=== PATIENT | female | born 1985 | race Caucasian/White ===

== ENCOUNTER 2023-02-07 08:38 | Outpatient (REF) | payer MEDICAID, SELFPAY | END 2023-02-07 08:39 | disposition home or self-care (01) | LOC: HO.HHCL 08:38 | PROVIDERS: Visit Provider Nurse Practitioner Family | DX: Z00.00 Encounter for general adult medical examination without abnormal findings (principal); L65.9 Nonscarring hair loss, unspecified | CPT/HCPCS: 36415; 80053; 80061; 84443; 85025 ==

== ENCOUNTER 2024-03-11 10:08 | Outpatient (REF) | payer MEDICAID, SELFPAY ==
[2024-03-11 11:10] LABS: MANUAL DIFF FLAG NO
[2024-03-11 11:18] LABS: Basophils Percent Auto 0.4 % (0-2); Eosinophils Absolute Auto 0.4 X10*3/uL (0.0-0.4); Eosinophils Percent Auto 5.6 % (0-4); Hematocrit 35.9 % (37.0-47.0); Hemoglobin 11.9 g/dl (12.0-16.0); Imm Gran Abs Auto 0.03 X10*3/uL (0.00-0.03); Imm Gran Pct Auto 0.4 % (0.0-0.4); Lymphocytes Absolute Auto 1.7 X10*3/uL (1.2-4.9); Lymphocytes Percent Auto 24.2 % (20-40); Mean Corpuscular HGB Conc 33.1 g/dl (31.0-35.0); Mean Corpuscular Hemoglobin 27.9 pg (27.0-33.0); Mean Corpuscular Volume 84.1 fL (80.0-98.0); Mean Platelet Volume 9.2 fL (9.4-12.3); Monocytes Absolute Auto 0.4 X10*3/uL (0.1-1.2); Monocytes Percent Auto 5.5 % (2-11); Neutrophils Absolute Auto 4.4 x10*3/uL (2.0-8.3); Neutrophils Percent Auto 63.9 % (45-73); Platelet Count 309 X10*3/uL (160-400); Red Blood Count 4.27 X10*6/uL (4.20-5.50); Red Cell Distribution Width 12.3 % (11.0-16.0); White Blood Count 6.9 X10*3/uL (4.8-10.8)
[2024-03-11 11:27] LABS: Estimated Average Glucose 108 mg/dL; Hemoglobin A1C 115.1463 umol/L; Hemoglobin A1c % 5.4 % (<6.0); Total Hemoglobin (HGBA1C) 3201.9485 umol/L
[2024-03-11 11:50] LABS: Alanine Aminotransferase 18 U/L (0-31); Albumin Level 4.2 g/dL (3.5-5.0); Alkaline Phosphatase 72 U/L (39-117); Anion Gap 12 (12-20); Aspartate Amino Transferase 18 U/L (5-31); Bilirubin Total 0.4 mg/dL (0.0-1.0); Blood Urea Nitrogen 10 mg/dL (9-16); Calcium 9.2 mg/dL (8.4-10.2); Carbon Dioxide 23 mmol/L (22-29); Chloride 107 mmol/L (96-108); Cholesterol 180 mg/dL (<200); Estimated Glomerular Filt Rate > 60; Glucose Random 97 mg/dL (60-115); HDL Cholesterol 61 mg/dL (>40); LDL Cholesterol Calculated 106 mg/dL (<100); Potassium 4.2 mmol/L (3.3-5.1); Sodium 138 mmol/L (135-145); Total Protein 7.3 g/dL (6.5-8.0); Triglycerides 68 mg/dL (<150)
[2024-03-11 12:06] LABS: Thyroid Stimulating Hormone 1.47 uIU/mL (0.32-4.0)
[2024-03-11 12:43] LABS: HIV AB/AG Nonreactive (Nonreactive); HIV Num 1 0.05 S/CO (0.00-0.99); ~HepC Num1 0.25 S/CO (0.00-0.79); ~Hepatitis C Antibody Nonreactive (Nonreactive)
== END 2024-03-11 10:09 | disposition home or self-care (01) ==
LOC: HO.HHCL 10:08
PROVIDERS: Visit Provider Nurse Practitioner Family
DX: Z00.00 Encounter for general adult medical examination without abnormal findings (principal); D64.9 Anemia, unspecified; L65.9 Nonscarring hair loss, unspecified; E66.811 Obesity, class 1
CPT/HCPCS: 36415; 80053; 80061; 83036; 84443; 85025; 86803; 87389

== ENCOUNTER 2024-04-02 08:30 | Outpatient (REF) | payer MEDICAID, SELFPAY ==
[2024-04-02 11:33] LABS: Hematocrit 35.3 % (37.0-47.0); Hemoglobin 11.5 g/dl (12.0-16.0); Mean Corpuscular HGB Conc 32.6 g/dl (31.0-35.0); Mean Corpuscular Volume 86.1 fL (80.0-98.0); Platelet Count 283 X10*3/uL (160-400); Red Cell Distribution Width 12.9 % (11.0-16.0); White Blood Count 6.4 X10*3/uL (4.8-10.8)
[2024-04-02 11:34] LABS: Alanine Aminotransferase 14 U/L (0-31); Alkaline Phosphatase 72 U/L (39-117); Anion Gap 11 (12-20); Aspartate Amino Transferase 18 U/L (5-31); Bilirubin Total 0.4 mg/dL (0.0-1.0); Blood Urea Nitrogen 12 mg/dL (9-16); Carbon Dioxide 23 mmol/L (22-29); Chloride 107 mmol/L (96-108); Estimated Glomerular Filt Rate > 60; Glucose Random 106 mg/dL (60-115); Potassium 3.9 mmol/L (3.3-5.1); Sodium 137 mmol/L (135-145); Total Protein 6.8 g/dL (6.5-8.0)
[2024-04-02 11:48] LABS: INTERNATIONAL NORM RATIO 0.9 (0.9-1.1); Prothrombin Time 10.4 SEC (10.9-12.4)
[2024-04-02 11:50] LABS: Partial Thromboplastin Time 30.8 SEC (26.0-36.8)
== END 2024-04-02 08:31 | disposition home or self-care (01) ==
LOC: HO.HHCL 08:30
PROVIDERS: Visit Provider Surgery Surgery of the Hand
DX: Z01.818 Encounter for other preprocedural examination (principal)
CPT/HCPCS: 36415; 80053; 85027; 85610; 85730

== ENCOUNTER 2024-05-02 11:06 | Outpatient (REF) | payer MEDICAID, SELFPAY ==
--- NOTE | ~2024-05-02 | XR_ITS ---
EXAMINATION: XR CHEST CLINICAL INFORMATION: Preop. COMPARISON: None TECHNIQUE: 2 views of the chest were obtained. FINDINGS: No consolidation pleural effusion or pneumothorax. Cardiomediastinal silhouette is normal. Osseous structures are intact. XR/XR chest 2V IMPRESSION: No acute airspace disease. Negative. Electronically signed by: Jimenez Carpenter MD 05/08/2024 09:18 AM [facility]
[2024-05-02 13:04] LABS: MANUAL DIFF FLAG NO
[2024-05-02 13:11] LABS: Basophils Percent Auto 0.5 % (0-2); Eosinophils Absolute Auto 0.4 X10*3/uL (0.0-0.4); Eosinophils Percent Auto 5.3 % (0-4); Hematocrit 36.1 % (37.0-47.0); Imm Gran Abs Auto 0.04 X10*3/uL (0.00-0.03); Imm Gran Pct Auto 0.5 % (0.0-0.4); Lymphocytes Absolute Auto 2.4 X10*3/uL (1.2-4.9); Lymphocytes Percent Auto 29.7 % (20-40); Mean Corpuscular HGB Conc 33.2 g/dl (31.0-35.0); Mean Corpuscular Volume 84.3 fL (80.0-98.0); Mean Platelet Volume 9.5 fL (9.4-12.3); Monocytes Absolute Auto 0.5 X10*3/uL (0.1-1.2); Monocytes Percent Auto 5.8 % (2-11); Neutrophils Absolute Auto 4.6 x10*3/uL (2.0-8.3); Neutrophils Percent Auto 58.2 % (45-73); Platelet Count 330 X10*3/uL (160-400); Red Blood Count 4.28 X10*6/uL (4.20-5.50); Red Cell Distribution Width 12.8 % (11.0-16.0); White Blood Count 7.9 X10*3/uL (4.8-10.8)
[2024-05-02 13:16] LABS: INTERNATIONAL NORM RATIO 0.9 (0.9-1.1); Prothrombin Time 10.2 SEC (10.9-12.4)
[2024-05-02 13:18] LABS: Partial Thromboplastin Time 28.4 SEC (26.0-36.8)
[2024-05-02 13:39] LABS: Alanine Aminotransferase 17 U/L (0-31); Alkaline Phosphatase 76 U/L (39-117); Anion Gap 11 (12-20); Aspartate Amino Transferase 16 U/L (5-31); Bilirubin Total 0.2 mg/dL (0.0-1.0); Blood Urea Nitrogen 13 mg/dL (9-16); Carbon Dioxide 24 mmol/L (22-29); Chloride 108 mmol/L (96-108); Estimated Glomerular Filt Rate > 60; Glucose Random 102 mg/dL (60-115); Sodium 139 mmol/L (135-145); Total Protein 6.8 g/dL (6.5-8.0)
[2024-05-02 13:44] LABS: Thyroid Stimulating Hormone 0.66 uIU/mL (0.32-4.0)
== END 2024-05-02 11:07 | disposition home or self-care (01) ==
LOC: HO.HHCL 11:06
PROVIDERS: PCP Nurse Practitioner Family; Visit Provider Internal Medicine
DX: Z01.818 Encounter for other preprocedural examination (principal); E66.811 Obesity, class 1
CPT/HCPCS: 36415; 71046; 80053; 84443; 85025; 85610; 85730

== ENCOUNTER → 2024-05-02 11:31 | Outpatient (BNV) | payer MEDICAID, SELFPAY | PROVIDERS: PCP Nurse Practitioner Family; Visit Provider Radiology Diagnostic Radiology | DX: Z01.818 Encounter for other preprocedural examination (principal) | CPT/HCPCS: 71046 ==

== ENCOUNTER 2024-06-01 10:31 | Outpatient (REF) | payer MEDICAID, SELFPAY ==
--- OUTSIDE RECORDS SUMMARY | 2024-06-01 10:34 | XMS_ITS | Encounter Summary ---
Author Organization [employer] Address [address] [facility] 7[address] [place] [address] Care Team Providers Care Head Scorer Name Role Phone Judy Weller NP Primary Care Provider [phone] Reason for Visit * Reason Onset Date Comments Pre-op Notes 05/08/2024 Encounter Details Date Type Department Care Team ([facility] st Contact Info) Description 05/08/2024 Telephone [facility] [address] [place], [place] [phone] Judy Weller NP [address] [place], [place] [phone] Pre-op Notes Social History Tobacco Use Types Packs/Day Years Used Date Smoking Tobacco: Never Smokeless Tobacco: Never Alcohol Use Standard Drinks/Week Comments Yes 0 (1 standard drink = 0.6 oz pur e alcohol) Occassional Depression Answer Date Recorded Patient Health Questionnaire-9 Score 14 02/03/2023 Housing Stability Answer Date Recorded What is your housing situation today? I have kathleen mejia 03/04/[address] you li ve. Do you have problems with any of the following? None of the above 03/04/2024 Food Insecurity Answer Date Recorded Within the past 12 months, y ou worried that your food would run out before you got money to buy more: Never True 03/04/2024 Within the past 12 months,th e food you bought just didn't last and you didn't have enough money to get more: Never True 07/2023 Transportation Answer Date Recorded In the past 12 months, has l ack of transportation kept you from medical appts, meetings, work or from getting things needed for daily living? No 03/04/2024 Utilities Answer Date Recorded In the past 12 months, has t he electric, gas, oil or water company threatened to shut off services in your home? No 03/04/2024 Depression Answer Date Recorded Patient Health Questionnaire-2 Score 2 02/03/2023 Internet Access Answer Date Recorded Internet Access Q1 Yes 03/04/2024 Internet Access Q2 Not on file 03/04/2024 Comments Unknown Sex and Gender Information Value Date Recorded Sex Assigned at Female 01/31/2023 11:24 AM EDT Legal Sex Female 3:43 PM EDT Gender Identity Female 01/31/2023 11:24 AM EDT Sexual Orientation Straight 01/31/2023 11 :24 AM EDT documented as of this encounter Miscellaneous Notes * Telephone Encounter - Nga Rizzo [place] - 05/08/2024 4:10 PM EST Pre-op notes, labs and Xray were faxed to [facility] fax [phone] tel [phone]. Confirmation received documented in this encounter Plan of Treatment Upcoming Encounters Date Type Department Care Team (Late st Contact Info) Description 06/10/2024 11:30 AM EST Office Visit [facility] [address] [place] [address] Judy Weller NP [address] [place] [address] documented as of this encounter Visit Diagnoses Not on filedocumented in this encounter Additional Health Concerns Assessment Noted Time PHQ-9 Depression Total Score: 14 023 10:07 AM EDT documented as of this encounter Care Teams Head Scorer Relationship Specialty Start Date End Date Judy Weller NP [address] [place] [address] PCP - General Family Medicine 01/03/24 documented as of this encounter
--- OUTSIDE RECORDS SUMMARY | 2024-06-01 10:35 | XMS_ITS | Encounter Summary ---
Author Organization [employer] Address [address] [facility] [address] [place] [address] Care Team Providers Care Charging Plug Placer Name Role Phone Cristal WildeP Primary Care Provider [phone] Judy Weller NP Primary Care Provider [phone] Encounter Details Date Type Department Care Team (Late st Contact Info) Description 02/03/2023 Abstract [facility] [address] [place], [place] [phone] Cristal Wilde FNP [address] [place] [address] Social History Tobacco Use Types Packs/Day Years Used Date Smoking Tobacco: Never Smokeless Tobacco: Never Alcohol Use Standard Drinks/Week Comments Yes 0 (1 standard drink = 0.6 oz pur e alcohol) Occassional Depression Answer Date Recorded Patient Health Questionnaire-9 Score 14 02/03/2023 Housing Stability Answer Date Recorded What is your housing situation today? I have kathleen mejia 02/06/[address] you li ve. Do you have problems with any of the following? None of the above 02/06/2023 Food Insecurity Answer Date Recorded Within the past 12 months, y ou worried that your food would run out before you got money to buy more: Never True 02/06/2023 Within the past 12 months,th e food you bought just didn't last and you didn't have enough money to get more: Never True 12/2022 Transportation Answer Date Recorded In the past 12 months, has l ack of transportation kept you from medical appts, meetings, work or from getting things needed for daily living? No 02/06/2023 Utilities Answer Date Recorded In the past 12 months, has t he electric, gas, oil or water company threatened to shut off services in your home? No 02/06/2023 Depression Answer Date Recorded Patient Health Questionnaire-2 Score 2 02/03/2023 Comments Unknown Sex and Gender Information Value Date Recorded Sex Assigned at Female 01/31/2023 11:24 AM EDT Legal Sex Female 3:43 PM EDT Gender Identity Female 01/31/2023 11:24 AM EDT Sexual Orientation Straight 01/31/2023 11 :24 AM EDT documented as of this encounter Plan of Treatment Upcoming Encounters Date Type Department Care Team (Late st Contact Info) Description 06/10/2024 11:30 AM EST Office Visit [facility] [address] [place] [address] Judy Weller NP [address] [place] [address] documented as of this encounter Visit Diagnoses Not on filedocumented in this encounter Additional Health Concerns Assessment Noted Time PHQ-9 Depression Total Score: 14 023 10:07 AM EDT documented as of this encounter Care Teams Charging Plug Placer Relationship Specialty Start Date End Date Cristal Wilde FNP [address] [place] [address] PCP - General Family Medicine 02/03/23 01/02/24 Judy Weller NP [address] [place] [address] PCP - General Family Medicine 01/03/24 documented as of this encounter
--- OUTSIDE RECORDS SUMMARY | 2024-06-01 10:35 | XMS_ITS | Encounter Summary ---
Author Organization [employer] Address [address] [facility] 7t [place] [address] Care Team Providers Care Special Deputy Sheriff Name Role Phone Cristal Wilde PLUMBING AND HEATING MECHANIC Primary Care Provider [phone] Judy Weller MACHINE PRESSER Primary Care Provider [phone] Reason for Visit * Reason Onset Date Comments New Patient 12/09/2022 Encounter Details Date Type Department Care Team (Late st Contact Info) Description 12/09/2022 Telephone [facility] MED[facility] [address] [place], [place] [phone] Tomas Kelly MD [address] [place], [place] [phone] New Patient Social History Tobacco Use Types Packs/Day Years Used Date Smoking Tobacco: Never Assessed Comments Unknown Sex and Gender Information Value Date Recorded Sex Assigned at Female 01/31/2023 11:24 AM EDT Legal Sex Female 3:43 PM EDT Gender Identity Female 01/31/2023 11:24 AM EDT Sexual Orientation Straight 01/31/2023 11 :24 AM EDT documented as of this encounter Miscellaneous Notes * Telephone Encounter - Reynold Darnell - 12/30/2022 2:57 PM EDT MARIMAR Scherer called pt to Offer MACHINE PRESSER appt. Pt demographics and insurance information were verified. Pt reports no medical conditions. Pt is not taking any medication at this time. Pt given MACHINE PRESSER appt with on Pt will be sent appt reminder card and medical release form and agrees to complete and toreturn to medical records prior to MACHINE PRESSER appt. * Telephone Encounter - Moremarkus Gilmer Darnell - 12/09/2022 10:26 AM EDT Pt has been transfer over to wait list for MACHINE PRESSER. EFFECTIVE SINCE 12/08/2022 documented in this encounter Plan of Treatment Upcoming Encounters Date Type Department Care Team (Late st Contact Info) Description 06/10/2024 11:30 AM EST Office Visit [facility] [address] [place] [address] Judy Weller NP [address] [place] [address] documented as of this encounter Visit Diagnoses Not on filedocumented in this encounter Care Teams Special Deputy Sheriff Relationship Specialty Start Date End Date Cristal Wilde FNP [address] [place] [address] PCP - General Family Medicine 02/03/23 01/02/24 Judy Weller NP [address] [place] [address] PCP - General Family Medicine 01/03/24 documented as of this encounter
--- OUTSIDE RECORDS SUMMARY | 2024-06-01 10:35 | XMS_ITS | Encounter Summary ---
Author Organization [employer] Address [address] [facility] [address] [place] [address] Care Team Providers Care Projection Engineer Name Role Phone Cristal Wilde Primary Care Provider [phone] Judy Weller NP Primary Care Provider [phone] Encounter Details Date Type Department Care Team (Late st Contact Info) Description 01/20/2023 Orders Only [facility] [address] [place], [place] [phone] Cristal Wilde FNP [address] [place] [address] Social History Tobacco Use Types Packs/Day Years [...] Encounters Date Type Department Care Team (Late Contact Info) Description 06/10/2024 11:30 AM EST Office Visit [facility] [address] [place] [address] Judy Weller NP [address] [place] [address] documented as of this encounter Visit Diagnoses Not on filedocumented in this encounter Care Teams Projection Engineer Relationship Specialty Start Date End Date Cristal Wilde FNP [address] [place] [address] PCP - General Family Medicine 02/03/23 01/02/24 Judy Weller NP [address] [place] [address] PCP - General Family Medicine 01/03/24 documented as of this encounter
--- OUTSIDE RECORDS SUMMARY | 2024-06-01 10:35 | XMS_ITS | Clinical Summary ---
Author Organization [employer] Address [address] [facility] [address] [place] [address] Care Team Providers Care Inside Sales Manager Name Role Phone Judy Weller VINNIE Primary Care Provider [phone] Allergies No known active allergies Medications albuterol (2.5 MG/3ML) 0.083% nebulizer solution Active loratadine (Claritin) 10 MG tablet Take 1 tablet (10 mg) by mouth in the morning. 30 tablet 11 3 Active naproxen (Naprosyn) 500 MG tablet TOME 1 TABLETA POR VIA ORAL DOS VECES AL SHANTA 60 tablet 4 Active Additional Information Patient not taking.Reported on 03/11/2024 albuterol (2.5 MG/3ML) 0.083% nebulizer solutionIndicat ions:Moderate persistent asthma, unspecified whether complicated Take 3 mL (2.5 mg) by nebulization every 4 (four) hours if needed for wheezing. 75 mL 4 Active minoxidil (Loniten) 2.5 MG tabletIndicatio ns:Androgenetic alopecia Take 1 tablet (2.5 mg) by mouth Once per day. 90 tablet 3 4 02/02/20 25 Active fluticasone-yamilka meterol (Advair HFA) 230-21 MCG/ACT inhalerIndicati ons:Moderate persistent asthma, unspecified whether complicated Inhale 2 puffs in the morning and at bedtime. Rinse mouth with water after use to reduce aftertaste and incidence of candidiasis. Do not swallow. 12 g 11 5 05/02/19 26 Active albuterol (Ventolin HFA) 108 (90 Base) MCG/ACT inhalerIndicati ons:Moderate persistent asthma, unspecified whether complicated Inhale 2 puffs every 6 (six) hours if needed for wheezing or shortness of breath. 18 g 2 5 05/02/19 26 Active ibuprofen 600 MG tabletIndicatio ns:Weakness Take 1 tablet (600 mg) by mouth every 8 (eight) hours if needed for mild pain, fever or headaches for up to 10 days. 30 tablet 5 06/11/19 25 Active Active Problems Problem Noted Date Diagnosed Date Preop examination 05/02/2024 Assessment & Plan (05/02/2024 10:55 AM EST): RCRI score is 0 which means 3.9% risk Surgery should proceed as schedule I advise NPO after midnight for the procedure Labs and XRAY ordered Moderate persistent asthma with exacerbation 06/2023 Assessment & Plan (05/02/2024 10:54 AM EST): Patient tells e she does not like asmanex because she feels swell and bloated when she uses it I will put her on advir, albuterol inhaler refilled, f/u with PCP Assessment & Plan (04/01/2024 3:39 PM EST): Alert and oriented in no acute distress No SOB, wheeze, crackles, bilateral lungs sound clear No fever, denies sinus pressure Bilateral ears and throat non-erythematous POCT influenza & covid 19 negative Differential Diagnoses: The differential diagnosis associated with the presentation includes viral URI and GERD Plan 40 mg prednisolone daily x 5 days Continue with albuterol neb treatment as prescribed After completion of prednisolone continue with use of Asmanex and albuterol inhaler as prescribed. Rinse mouth after use of Asmanex If SOB worsens over night dial 911 or go to the ER Routine health maintenance 03/11/2024 Assessment & Plan (03/11/2024 10:09 AM EST): Labs as ordered below, Referral to breast clinic Utd on pap Pt declines vaccines today Obesity (BMI 30.0-34.9) 03/11/2024 Assessment & Plan (03/11/2024 10:10 AM EST): Encouraged hydration, increasing vegetables Sleep Labs as ordered below Dietary counseling 03/11/2024 Assessment & Plan (03/11/2024 10:10 AM EST): Encouraged minimizing processed foods and increasing whole foods particularly vegetables Exercise counseling 03/11/2024 Assessment & Plan (03/11/2024 10:10 AM EST): Encouraged daily movement, working up to 30 minutes daily Family history of breast cancer 03/11/2024 Assessment & Plan (03/11/2024 10:10 AM EST): Fh of breast cancer and braca gene Carpal tunnel syndrome on both sides 11/04/2023 Acute thoracic back pain 11/04/2023 Assessment & Plan (11/04/2023 5:33 PM EDT): No focal bony tenderness, referral to physical therapy Moderate persistent asthma 11/04/2023 Assessment & Plan (03/11/2024 10:12 AM EST): Initiate mometasone, rinse mouth after use Rtc in 2 months Assessment & Plan (11/04/2023 5:33 PM EDT): Requesting albuterol for nebulizer, ordered No nocturnal awakenings Anemia 10/30/2023 Assessment & Plan (11/04/2023 5:31 PM EDT): Trend labs Hair loss 10/30/2023 Assessment & Plan (11/04/2023 5:32 PM EDT): Referral to dermatology, tsh and cbc ordered Class 1 obesity 09/14/2023 BRANDI (generalized anxiety disorder) 09/14/2023 History of bilateral tubal ligation 09/14/2023 MDD (major depressive disorder) 09/14/2023 Encounters Date Type Department Care Team Description 06/01/2024 9:20 AM EST Office Visit [facility] [address] [place] [phone] Toney Cartwright MD Weakness 06/01/2024 Travel 05/31/2024 Telephone [facility] [address] [place] [phone] Judy Weller NP Nurse Triage 05/30/[address] [address] Mariam Martinez MA Chart Prep 05/13/[address] [address] Kesha Yang MD 05/08/[address] [address] Judy Weller NP Pre-op Notes 05/08/[address] [address] Mariam Martinez MA Chart Prep 05/02/2024 10:15 AM EST Office Visit [address] [address] Kesha Yang MD Preop examination (Primary Dx); Moderate persistent asthma, unspecified whether complicated; Moderate persistent asthma with exacerbation 05/02/2024 Travel 04/15/2024 Travel 04/11/[address] [address] Judy Weller NP 04/11/[address] [address] Judy Weller NP Lab Orders 04/01/2024 1:00 PM EST Office Visit [address] [address] Harvinder Kim MD Moderate persistent asthma with exacerbation (Primary Dx) 04/01/[address] [address] Judy Weller NP Nurse Triage 03/26/2024 Refill [facility] [address] [place] [phone] Judy Weller NP 03/21/[address] [address] Judy Weller NP 03/18/2024 Refill [facility] [address] [place] [phone] Judy Weller NP 03/14/2024 Refill [facility] [address] [place] [phone] Judy Weller NP 03/12/2024 Refill [facility] [address] [place] [phone] Judy Weller NP 03/11/2024 9:00 AM EST Office Visit [facility] [address] [place] [phone] Judy Weller NP Routine health maintenance (Primary Dx); Moderate persistent asthma, unspecified whether complicated; Obesity (BMI 30.0-34.9); Dietary counseling; Exercise counseling; Family history of breast cancer; Carpal tunnel syndrome on both sides; Anemia, unspecified type 03/11/2024 Travel 03/08/2024 Telephone [facility] [address] [place] [phone] Luz Salter MA CHART PREP 03/04/2024 Patient Outreach [facility] [address] [place] [address] Judy Weller NP Pre-visit Planning (SDOH negative, Tobacco screening negative.) from Last 3 Months Immunizations Name Administration Dates Next Due Influenza injectable quadrivalent preservative f ree 02/03/2023,04/10/2020 Influenza, IIV3, injectable 01/31/2022 Influenza, seasonal, injectable, preservative fr ee 01/31/2022 Pfizer Covid-19 Vaccine 12+ 02/13/2021, Pfizer Covid-19 Vaccine 12+ Bivalent 01/31/2022 Tdap 04/10/2020 Family History Medical History Relation Name Comments Hypertension Father Arthritis Mother Breast cancer Mother's Sister braca Ovarian cancer Other aunt maternal Relation Name Status Comments Father Mother Mother's Sister Other aunt maternal Social History Tobacco Use Types Packs/Day Years Used Date Smoking Tobacco: Never Smokeless Tobacco: Never Tobacco Cessation:Counseling Given: Not Answered Alcohol Use Standard Drinks/Week Comments Yes 0 [...] Orientation Straight 01/31/2023 11 :24 AM EDT Last Filed Vital Signs Vital Sign Reading Time Taken Comments Blood Pressure 134/75 06/01/2024 9:45 AM EST Pulse 119 06/01/2024 9:45 AM EST Temperature 35.9 ??C (96.7 ??F) 06/01/2024 9:45 AM ES T Respiratory Rate 20 06/01/2024 9:45 AM EST Oxygen Saturation 99% 06/01/2024 9:45 AM EST Inhaled Oxygen Concentration - - Weight 76.4 kg (168 lb 6.4 oz) 06/01/2024 9:45 A M EST Height 157.5 cm (5' 2 ) 06/01/2024 9:45 AM EST Body Mass Index 30.8 06/01/2024 9:45 AM EST Plan of Treatment Upcoming Encounters Date Type Department Care Team (Late st Contact Info) Description 06/10/2024 11:30 AM EST Office Visit [facility] [address] [place], [place] [phone] Judy Weller NP [address] [place] [address] Health Maintenance Due Date Last Done Comments Family Planning (PISQ) 2001 Hepatitis B Vaccines (1 of 3 - 19+ 3-dose series) 2005 Pneumococcal Vaccine: Pediatrics (0 to 5 Years) and At-Risk Patients (6 to 49) Years) (1 of 2 - PCV) 2005 Depression Monitoring (PHQ-9) 08/05/2023 02/03/2023, 02/03/2023 COVID-19 Vaccine ( season) 2023 01/31/2022, 02/13/2021, 01/23/2021 Influenza Vaccine (#1) 2023 , 01/31/2022, 01/31/2022, Additional history exists Depression Screening 02/04/2024 02/03/2023, 02/04/20 23 SDOH Screening 03/04/2025 03/04/2024 Alcohol/Substance Use Screening 03/11/2025 03/11/2024 Tobacco Screening 05/02/2025 05/02/2024 Cervical Cancer Screening 11/24/2027 HPV/Cotest 11/24/2027 11/23/2022 Pap Smear 11/24/2027 11/23/2022 Lipid Panel 03/11/2029 03/11/2024, 02/07/2023 DTaP/Tdap/Td Vaccines (2 - Td or Tdap) 04/10/2030 04/10/2020 Zoster Vaccines (1 of 2) 2036 RSV Patients and Patients Aged 60 years or older (1 - 1-dose 75+ series) 2061 HIV Screening Completed 03/11/2024 Hepatitis C Screening Completed 03/11/2024 HIB Vaccines Aged Out No longer eligi ble based on patient's age to complete this topic HPV Vaccines Aged Out No longer eligi ble based on patient's age to complete this topic Hepatitis A Vaccines Aged Out No long er eligible based on patient's age to complete this topic IPV Vaccines Aged Out No longer eligi ble based on patient's age to complete this topic Meningococcal Vaccine Aged Out No lali candice eligible based on patient's age to complete this topic RSV under 20 months Aged Out No longe r eligible based on patient's age to complete this topic Rotavirus Vaccines Aged Out No longer eligible based on patient's age to complete this topic Procedures Procedure Name Priority Date/Time Associated Diagnosis Comments POCT INFLUENZA B Routine 06/01/2024 9:55 AM EST Weakness POCT INFLUENZA A Routine 06/01/2024 9:55 AM EST Weakness POCT INFLUENZA A Routine 06/01/2024 9:55 AM EST Moderate persistent asthma with exacerbation POCT RAPID COVID ANTIGEN Routine 06/01/2024 9:51 AM EST Weakness XR CHEST 2 VIEWS Routine 05/02/2024 11:3 1 AM EST Preop examination APTT Routine 05/02/2024 11:08 AM EST Preop examination PROTHROMBIN TIME-INR Routine 05/02/2024 11:08 AM EST Preop examination COMPREHENSIVE METABOLIC PANEL Routine 05/02/2024 11:08 AM EST Preop examination CBC WITH AUTO DIFFERENTIAL Routine 05/02/2024 11:08 AM EST Preop examination TSH Routine 05/02/2024 11:08 AM EST Obesity (BMI 30.0-34.9) POCT INFLUENZA B Routine 04/01/2024 2:17 PM EST Moderate persistent asthma with exacerbation POCT RAPID COVID ANTIGEN Routine 04/01/2024 2:16 PM EST Moderate persistent asthma with exacerbation HEPATITIS C AB W/REFL TO HCV RNA, QN, PCR Routine 03/11/2024 10:10 AM EST Routine health maintenance HIV 1/2 ANTIGEN/ANTIBODY, FOURTH GENERATION W/RFL Routine 03/11/2024 10:10 AM EST Routine health maintenance LIPID PANEL, STANDARD Routine 03/11/2024 10:10 AM EST Routine health maintenance COMPREHENSIVE METABOLIC PANEL Routine 03/11/2024 10:10 AM EST Obesity (BMI 30.0-34.9) TSH Routine 03/11/2024 10:10 AM EST Hair loss Weight gain HEMOGLOBIN A1C Routine 03/11/2024 10:10 AM EST Weight gain CBC WITH AUTO DIFFERENTIAL Routine 03/11/2024 10:10 AM EST Anemia, unspecified type HM PAP/HPV Routine 11/23/2022 from Last 3 Months or Most Recently Relevant to Health Maintenance Results * POCT Influenza B manually resulted (06/01/2024 9:55 AM EST) Only the most recent of2 resultswithin the time period is included. Rapid Influenza B Ag Negative Negative, Indeterminate QC Media Lot # [id number] Lot# Expiration Date Swab 06/01/2024 9:55 AM EST Toney Cartwright MD POINT OF CARE TEST ENTER/EDIT OR DERABLES Final Result * POCT Influenza A manually resulted (06/01/2024 9:55 AM EST) Only the most recent of2 resultswithin the time period is included. Rapid Influenza A Ag Negative Negative, Indeterminate QC Media Lot # [id number] Lot# Expiration Date Swab Nasopharyngeal structure / Unknown 06/01/2024 9:55 AM EST us Toney Cartwright MD POINT OF CARE TEST ENTER/EDIT OR DERABLES Final Result * POCT Rapid COVID Ag (06/01/2024 9:51 AM EST) Only the most recent of2 resultswithin the time period is included. Rapid COVID Ag Negative QC Media Lot # [id number] Lot# Expiration Date [id number] Swab 06/01/2024 9:51 AM EST us Toney Cartwright MD POINT OF CARE TEST ENTER/EDIT OR DERABLES Final Result * XR Chest 2 Views (05/02/2024 11:31 AM EST) Anatomical Region Laterality Modality Chest Radiographic Betty ging 05/02/2024 11:3 1 AM EST Narrative 05/08/2024 9:20 AM EST ? [facility] ?[address] ?[place] [address] ?XRay Report ? Signed ? Patient: Irving Mckay ?MR#: [id number] ?? 55 ? : 1985 ?Acct:[id number] ? Age/Sex: 38 / F ?ADM Date: 05/02/24 ? Loc: HO.HHCL ? Attending Dr: Kesha Casrto MD ? Ordering Physician: Kesha Yang MD ?? Date of Service: 05/02/24 ?? Procedure(s): XR chest 2V ?? Accession Number(s): [id number] ? cc: Kesha Yang MD; Judy Weller GASOLINE TRACTOR OPERATOR ? EXAMINATION: ?? XR CHEST ? CLINICAL INFORMATION: ?? Preop. ? COMPARISON: ?? None ? TECHNIQUE: ?? 2 views of the chest were obtained. ? FINDINGS: ?? No consolidation pleural effusion or pneumothorax. ?? Cardiomediastinal silhouette is normal. ?? Osseous structures are intact. ? XR/XR chest 2V ?? IMPRESSION: ?? No acute airspace disease. Negative. ? Electronically signed by: ??Jimenez Carpenter MD ??05/08/2024 09:18 AM ?? EST RP ? Dictated By: ?Jimenez Santos MD ? Signed By: ?<Electronically signed by Jimenez Macias MD in OV> ? 05/08/24 0918 ? DD/ 1131 ? TD/TT: 05/02/24 1139 ? Pony Worker: ? Procedure Note Donotuseinterpreter, Image - 05/08/[address] [address] XRay Report Signed Patient: Barbara Mckay#: [id number] 55 : 1985Acct:[id number] Age/Sex: 38 / FADM Date: 05/02/24 Loc: HO.HHCL Attending Dr: Kesha Castor MD Ordering Physician: Kesha Yang MD Date of Service: 05/02/24 Procedure(s): XR chest 2V Accession Number(s): [id number] cc: Kesha Yang MD; Judy Weller NP EXAMINATION: XR CHEST CLINICAL INFORMATION: Preop. COMPARISON: None TECHNIQUE: 2 views of the chest were obtained. FINDINGS: No consolidation pleural effusion or pneumothorax. Cardiomediastinal silhouette is normal. Osseous structures are intact. XR/XR chest 2V IMPRESSION: No acute airspace disease. Negative. Electronically signed by: Jimenez Carpenter MD 05/08/2024 09:18 AM EST Dictated By: Jimenez Santos MD Signed By: <Electronically signed by Jimenez Macias MDin OV> 05/08/24 0918 DD/ 1131 TD/TT: 05/02/24 1139 Pony Worker: us Kesha Castro MD IMG XR PROCEDURES Walt abner Result - Final * (ABNORMAL) CBC auto differential (05/02/2024 11:08 AM EST) Only the most recent of2 resultswithin the time period is included. White Blood Count 7.9 4.8 - 10.8 X10*3/uL LABS Red Blood Count 4.28 4.20 - 5.50 X10*6/uL LABS Hemoglobin 12.0 12.0 - 16.0 g/dl LABS Hematocrit 36.1(L) 37.0 - 47.0 % LABS Mean Corpuscular Volume 84.3 80.0 - 98.0 fL LABS Mean Corpuscular Hemoglobin 28.0 27.0 - 33.0 pg LABS Mean Corpuscular HGB Conc 33.2 31.0 - 35.0 g/dl LABS Red Cell Distribution Width 12.8 11.0 - 16.0 % LABS Platelet Count 330 160 - 400 X10*3/uL LABS Mean Platelet Volume 9.5 9.4 - 12.3 fL LABS Neutrophils Percent Auto 58.2 45 - 73 % LABS Imm Gran Pct Auto 0.5(H) 0.0 - 0.4 % LABS Lymphocytes Percent Auto 29.7 20 - 40 % LABS Monocytes Percent Auto 5.8 2 - 11 % LABS Eosinophils Percent Auto 5.3(H) 0 - 4 % LABS Basophils Percent Auto 0.5 0 - 2 % LABS NRBC Pct Auto 0.0 0.0 - 0.2 /100WBC LABS Neutrophils Absolute Auto 4.6 2.0 - 8.3 x10*3/uL LABS Imm Gran Abs Auto 0.04(H) 0.00 - 0.03 X10*3/uL LABS Lymphocytes Absolute Auto 2.4 1.2 - 4.9 X10*3/uL LABS Monocytes Absolute Auto 0.5 0.1 - 1.2 X10*3/uL LABS Eosinophils Absolute Auto 0.4 0.0 - 0.4 X10*3/uL LABS Basophils Absolute Auto 0.0 0.0 - 0.2 X10*3/uL LABS NRBC Abs Auto 0.000 0.0 - 0.012 X10*3/uL LABS Blood Venous blood specimen / Unknown 05/02/2024 11:08 AM EST 05/02/2024 1:00 PM EST Kesha Castro MD LAB BLOOD ORDERABLES Final Result Performing Organization Address [facility] de Phone Number LABS [address] [place] [phone] * Partial Thromboplastin Time, Activated (APTT) (05/02/2024 11:08 AM EST) Partial Thromboplastin Time 28.4 26.0 - 36.8 SEC LABS Comment:For information rega rding the monitoring of direct thrombininhibitors, please refer to Pharmacy. Blood Venous blood specimen / Unknown 05/02/2024 11:08 AM EST 05/02/2024 1:00 PM EST Kesha Castro MD LAB BLOOD ORDERABLES Final Result Performing Organization Address [facility] Phone Number LABS [address] [place] [phone] * (ABNORMAL) Prothrombin Time-INR (05/02/2024 11:08 AM EST) Prothrombin Time 10.2(L) 10.9 - 12.4 SEC LABS INTERNATIONAL NORM RATIO 0.9 0.9 - 1.1 LABS Comment:INTERNATIONAL NORMAL IZED RATIO (INR) REFERENCE RANGES Reference RangeFor patients not on anticoagulant therapy: 0.9 - 1.1INR ranges for oral anticoagulanttherapy:For prevention and treatment of venous thrombosis and pulmonary embolism: 2.0 - 3.0For acute myocardial infarction with aspirin therapy: 2.0 - 3.0For acute myocardial infarction without aspirin therapy: 3.0 - 4.0For patients with mechanical prosthetic heart valves: 2.5 - 3.5 Blood Venous blood specimen / Unknown 05/02/2024 11:08 AM EST 05/02/2024 1:00 PM EST us Kesha Castro MD LAB BLOOD ORDERABLES Final Result Performing Organization Address City/[facility]/ZIP Co de Phone Number LABS [address] [place] [phone] * TSH (05/02/2024 11:08 AM EST) Only the most recent of2 resultswithin the time period is included. Thyroid Stimulating Hormone 0.66 0.32 - 4.0 uIU/mL LABS Comment:TSH 3rd Generation ( [employer] Blood Venous blood specimen / Unknown 05/02/2024 11:08 AM EST 05/02/2024 1:00 PM EST us Judy Weller NP LAB BLOOD ORDERABLES Final Resul t Performing Organization Address [facility] Co de Phone Number LABS [address] [place] [phone] * (ABNORMAL) Comprehensive Metabolic Panel (05/02/2024 11:08 AM EST) Only the most recent of2 resultswithin the time period is included. Sodium 139 135 - 145 mmol/L LABS Potassium 4.0 3.3 - 5.1 mmol/L LABS Chloride 108 96 - 108 mmol/L LABS Carbon Dioxide 24 22 - 29 mmol/L LABS Anion Gap 11(L) 12 - 20 LABS Urea Nitrogen (BUN) 13 9 - 16 mg/dL LABS Creatinine, Serum 0.73 0.5 - 1.4 mg/dL LABS Estimated Glomerular Filt Rate >60 LABS Comment:Chronic Kidney Disea se: Estimated GFR < 60 mL/min/1.21n4Miyask Kidney Disease: Estimated GFR < 15 mL/min/1.73m2 Glucose 102 60 - 115 mg/dL LABS Calcium 9.0 8.4 - 10.2 mg/dL LABS Bilirubin, Total 0.2 0.0 - 1.0 mg/dL LABS Aspartate Amino Transferase 16 5 - 31 U/L LABS Alanine Aminotransferase 17 0 - 31 U/L LABS Total Protein 6.8 6.5 - 8.0 g/dL LABS Albumin Level 4.0 3.5 - 5.0 g/dL LABS Alkaline Phosphatase 76 39 - 117 U/L LABS Blood Venous blood specimen / Unknown 05/02/2024 11:08 AM EST 05/02/2024 1:00 PM EST us Kesha Castro MD LAB BLOOD ORDERABLES Final Result Performing Organization Address [facility] Co de Phone Number LABS [address] [place] [phone] * Hepatitis C Antibody with Reflex to HCV, RNA, Quantitative, Real-Time PCR (03/11/2024 10:10 AM EST) Hepatitis C Antibody Nonreactive Nonreactive LABS Comment:Antibodies to HCV no t detected; does not exclude early acuteHCV infection. Blood Venous blood specimen / Unknown 03/11/2024 10:10 AM EST 03/11/2024 11:06 AM EST us Judy Weller NP LAB BLOOD ORDERABLES Final Resul t Performing Organization Address [facility] Co de Phone Number LABS [address] [place] [phone] * HIV-1/2 Antigen and Antibodies, Fourth Generation, with Reflexes (03/11/2024 10:10 AM EST) HIV AB/AG Nonreactive Nonreactive [facility] LABS Comment:HIV-1 p24 Ag and/or HIV-1/HIV-2 Ab not detected.A test result that is nonreactive does not exclude thepossibility of exposure to or infection with HIV-1 and/orHIV-2. Nonreactive results in this assay for individualswith prior exposure to HIV-1 and/or HIV-2 may be due toantigen and antibody levels that are below the limit ofdetection of this assay.The [employer] CBOT HIV Ag/Ab Combo assay result andsupplemental assay results should be interpreted inconjunction with the patient's clinical presentation,history and other laboratory results. If the results areinconsistent with clinical evidence, additional testing issuggested to confirm the result. Blood Venous blood specimen / Unknown 03/11/2024 10:10 AM EST 03/11/2024 11:06 AM EST us Judy Weller NP LAB BLOOD ORDERABLES Final Resul t Performing Organization Address [facility] de Phone Number LABS [address] [place] [phone] * Hemoglobin A1c (03/11/2024 10:10 AM EST) Hemoglobin A1c 5.4 <6.0 % [facility] LABS Comment:Hemoglobin A1C Refer ence Range Adults: 4.8 - 6.0 % Non diabetic: < 6.0 % Goal: < 7.0 %Additional Action Suggested: > 8.0 %Note: Hemoglobin A1c results are invalid for patients with abnormal amounts of HbF. Blood transfusions may impact the HbA1c concentration in the patient sample. Estimated Average Glucose 108 mg/dL LABS Comment:eAG = Estimated ave rage glucose which is %A1C expressed asaverage glucose, using the formula of the J1Z-TjqelvlSyhubwm Glucose study (ADAG), Diabetes Care, Vol.31,#8,Nov. 2007 Blood Venous blood specimen / Unknown 03/11/2024 10:10 AM EST 03/11/2024 11:06 AM EST us Judy Weller NP LAB BLOOD ORDERABLES Final Resul t Performing Organization Address [facility] de Phone Number LABS [address] [place] [phone] * (ABNORMAL) Lipid Panel, Standard (03/11/2024 10:10 AM EST) Triglycerides 68 <150 mg/dL [facility] LABS Comment:Desirable Triglyceri de: less than 150 mg/dLBorderline High Triglyceride 150-199 mg/dLHigh Triglyceride: 200-499 mg/dLVery High Triglyceride: greater than or equal to 5OO mg/dL Cholesterol 180 <200 mg/dL LABS Comment:Desirable Cholestero l: less than 200 mg/dLBorderline High Cholesterol: 200-239 mg/dLHigh Cholesterol: greater than 239 mg/dL LDL Cholesterol Calculated 106(H) <100 mg/dL LABS Comment:Desirable LDL: less than 100 mg/dLNear Optimal/Above Optimal LDL: 110- 129 mg/dLBorderline High LDL: 130-159 mg/dLHigh LDL: 160-189 mg/dLVery High LDL: greater than or equal to 190 mg/dL HDL Cholesterol 61 >40 mg/dL [facility] LABS Comment:Desirable HDL: great er than 40 mg/dL Note: This HDL assay may give artificially low results in patients with liver disease. Blood Venous blood specimen / Unknown 03/11/2024 10:10 AM EST 03/11/2024 11:06 AM EST Judy Weller GASOLINE TRACTOR OPERATOR LAB BLOOD ORDERABLES Final Resul t LABS [address] [place] [phone] * Hm Pap Smear (11/23/2022) Pap Negative for intraephithelial lesion or malignancy Negative for intraephithelial lesion or malignancy, Other HPV Undetected Undetected, Indeterminate, Quantitative, Not Detected us Historical Provider HEALTH MAINTENANCE Final Result from Last 3 Months or Most Recently Relevant to Health Maintenance Insurance [facility] C3 Care Teams Inside Sales Manager Relationship Specialty Start Date End Date Judy Weller NP [address] [place] [address] PCP - General Family Medicine 01/03/24
--- OUTSIDE RECORDS SUMMARY | 2024-06-01 10:36 | XMS_ITS | Encounter Summary ---
Author Organization [employer] Address [address] [facility] 7t [place] [address] Care Team Providers Care [place]. Representative Name Role Phone Judy Weller VINNIE Primary Care Provider [phone] Encounter Details Date Type Department Care Team ([facility] st Contact Info) Description 05/13/2024 Telephone [facility] [address] [place], [place] [phone] Kesha Yang MD [address] [place], [place] [phone] Social History Tobacco Use Types Packs/Day Years Used Date Smoking Tobacco: Never Smokeless Tobacco: Never Alcohol Use Standard Drinks/Week Comments Yes 0 (1 standard drink = 0.6 oz pur e alcohol) Occassional Depression Answer Date Recorded Patient Health Questionnaire-9 Score 14 02/03/2023 Housing Stability Answer Date Recorded What is your housing situation today? I have kathleenjackie mejia 03/04/[address] you [...] encounter Miscellaneous Notes * Telephone Encounter - Radha Lamas RN - 05/13/2024 3:47 PM EST ----- Message from Kesha Castro MD sent at 05/13/2024 3:09 PM EST ----- Pleae let patient know her XRAY was normal Unable to contact pt normal X-ray letter mailed to address on file documented in this encounter Plan of Treatment Upcoming Encounters Date Type Department Care Team (Late st Contact Info) Description 06/10/2024 11:30 AM EST Office Visit [facility] [address] [place] [address] Judy Weller NP [address] [place] [address] documented as of this encounter Visit Diagnoses Not on filedocumented in this encounter Additional Health Concerns Assessment Noted Time PHQ-9 Depression Total Score: 14 023 10:07 AM EDT documented as of this encounter Care Teams U.S. Representative Relationship Specialty Start Date End Date Judy Weller NP [address] [place] [address] PCP - General Family Medicine 01/03/24 documented as of this encounter
--- OUTSIDE RECORDS SUMMARY | 2024-06-01 10:36 | XMS_ITS | Encounter Summary ---
Author Organization [employer] Address [address] [facility] 7t [place] [address] Care Team Providers Care Inventory Coordinator Name Role Phone Judy Weller VINNIE Primary Care Provider [phone] Reason for Visit * Reason Comments Pre-op Exam Encounter Details Date Type Department Care Team ([facility] st Contact Info) Description 05/02/2024 10:15 AM EST Office Visit [facility] [address] [place], [place] [phone] Kesha Yang MD [address] [place], [place] [phone] Preop examination (Primary Dx); Moderate persistent asthma, unspecified whether complicated; Moderate persistent asthma with exacerbation Social History Tobacco Use Types Packs/Day Years [...] AM EDT documented as of this encounter Last Filed Vital Signs Vital Sign Reading Time Taken Comments Blood Pressure 131/77 05/02/2024 10:21 AM EST Pulse 80 05/02/2024 10:21 AM EST Temperature 36.3 ??C (97.3 ??F) 05/02/2024 10:[address] Respiratory Rate 18 05/02/2024 10:21 AM EST Oxygen Saturation 97% 05/02/2024 10:21 AM EST Inhaled Oxygen Concentration - - Weight 75.9 kg (167 lb 6.4 oz) 05/02/2024 10:21 AM EST Height 157.5 cm (5' 2 ) 05/02/2024 10:21 AM EST Body Mass Index 30.62 05/02/2024 10:21 AM EST documented in this encounter Progress Notes * Kesha Castro MD - 05/02/2024 10:15 AM EST SUBJECTIVE: Irving Mckay is a 38 y.o. year old female who presents for Pre Op . (For BBL cosmetic surgery) Irving is here today for pre-operative evaluation. Reports no sx of CP, SOB, VALENTIN, at rest or with exertion. No paroxsysmal nocturnal orthopnea, LE swelling or palpitations. No h/o CVD, diabetes, kidney disease, recent anticoagulant or antithrombotic use, personal h/o coagulopathy. No allergies to iodine, latex or tape. Irving can run across street or walk up flight of stairs without SOB or CP. Acute Concerns: None Social History Social History Narrative Not on file Patient Active Problem List Diagnosis Class 1 obesity BRANDI (generalized anxiety disorder) History of bilateral tubal ligation MDD (major depressive disorder) Anemia Hair loss Carpal tunnel syndrome on both sides Acute thoracic back pain Moderate persistent asthma Routine health maintenance Obesity (BMI 30.0-34.9) Dietary counseling Exercise counseling Family history of breast cancer Moderate persistent asthma with exacerbation Preop examination Family History Problem Relation Name Age of Onset Arthritis Mother Hypertension Father Breast cancer Mother's Sister braca Ovarian cancer Other aunt maternal Review of Systems Constitutional: Negative. HENT: Negative. Respiratory: Negative. Cardiovascular: Negative. OBJECTIVE: Vitals: 05/02/24 1021 BP: 131/77 BP Location: Left arm Patient Position: Sitting BP Cuff Size: Adult Pulse: 80 Resp: 18 Temp: 97.3 ??F (36.3 ??C) TempSrc: Temporal SpO2: 97% Weight: 167 lb 6.4 oz (75.9 kg) Height: 5' 2 (1.575 m) Physical Exam Constitutional: Appearance: Normal appearance. Cardiovascular: Rate and Rhythm: Normal rate and regular rhythm. Pulmonary: Effort: Pulmonary effort is normal. Breath sounds: Normal breath sounds. Abdominal: General: Abdomen is flat. Palpations: Abdomen is soft. Musculoskeletal: Right lower leg: No edema. Left lower leg: No edema. Neurological: Mental Status: She is alert. Follow Up: No follow-ups on file. Current Outpatient Medications on File Prior to Visit Medication Sig Dispense Refill albuterol (2.5 MG/3ML) 0.083% nebulizer solution albuterol (2.5 MG/3ML) 0.083% nebulizer solution Take 3 mL (2.5 mg) by nebulization every 4 (four) hours if needed for wheezing. 75 mL 0 loratadine (Claritin) 10 MG tablet Take 1 tablet (10 mg) by mouth in the morning. 30 tablet 11 minoxidil (Loniten) 2.5 MG tablet Take 1 tablet (2.5 mg) by mouth Once per day. 90 tablet 3 naproxen (Naprosyn) 500 MG tablet TOME 1 TABLETA POR VIA ORAL DOS VECES AL SHANTA (Patient not taking:Reported on 03/11/2024) 60 tablet 0 [DISCONTINUED] albuterol (Ventolin HFA) 108 (90 Base) MCG/ACT inhaler Inhale 2 puffs every 4 (four)hours if needed for wheezing or shortness of breath. 18 g 11 [DISCONTINUED] Asmanex HFA 100 MCG/ACT aerosol INHALE 1 PUFF INTO LUNGS TWICE A DAY 13 g 1 No current facility-administered medications on file prior to visit. Problem List Items Addressed This Visit Preop examination - Primary RCRI score is 0 which means 3.9% risk Surgery should proceed as schedule I advise NPO after midnight for the procedure Labs and XRAY ordered Relevant Orders XR Chest 2 Views Comprehensive Metabolic Panel CBC auto differential Prothrombin Time-INR Partial Thromboplastin Time, Activated (APTT) Moderate persistent asthma Relevant Medications fluticasone-salmeterol (Advair HFA) 230-21 MCG/ACT inhaler albuterol (Ventolin HFA) 108 (90 Base) MCG/ACT inhaler Moderate persistent asthma with exacerbation Patient tells e she does not like asmanex because she feels swell and bloated when she uses it I will put her on advir, albuterol inhaler refilled, f/u with PCP documented in this encounter Miscellaneous Notes * Assessment & Plan Note - Kesha Castro MD - 05/02/2024 10:55 AM EST Associated Problem(s): Preop examination RCRI score is 0 which means 3.9% risk Surgery should proceed as schedule I advise NPO after midnight for the procedure Labs and XRAY ordered * Assessment & Plan Note - Kesha Castro MD - 05/02/2024 10:54 AM EST Associated Problem(s): Moderate persistent asthma with exacerbation Patient tells e she does not like asmanex because she feels swell and bloated when she uses it I will put her on advir, albuterol inhaler refilled, f/u with PCP documented in this encounter Plan of Treatment Upcoming Encounters Date Type Department Care Team (Late st Contact Info) Description 06/10/2024 11:30 AM EST Office Visit [facility] [address] [place] [phone] Judy Weller NP [address] [place] [phone] Scheduled Orders Name Type Priority Associated Diagnoses Orde r Schedule CBC auto differential Lab Routine Preop examination Expected: 05/02/2024 (Approximate), Expires: 05/02/2025 documented as of this encounter Procedures Procedure Name Priority Date/Time Associated Diagnosis Comments XR CHEST 2 VIEWS Routine 05/02/2024 11:3 1 AM EST Preop examination APTT Routine 05/02/2024 11:08 AM EST Preop examination PROTHROMBIN TIME-INR Routine 05/02/2024 11:08 AM EST Preop examination COMPREHENSIVE METABOLIC PANEL Routine 05/02/2024 11:08 AM EST Preop examination documented in this encounter Results * XR Chest 2 Views (05/02/2024 11:31 AM EST) Anatomical Region Laterality Modality Chest Radiographic Betty ging 05/02/2024 11:3 1 AM EST Narrative 05/08/2024 9:20 AM EST ? [facility] ?[address] ?[place] [address] ?XRay Report ? Signed ? Patient: Nely,Zuledka ?MR#: [id number] ?? 55 ? : 1985 ?Acct:[id number] ? Age/Sex: 38 / F ?ADM Date: 01/02/25 ? Loc: HO.[facility]CL ? Attending Dr: Kesha Castro MD ? Ordering Physician: Kesha Yang MD ?? Date of Service: 05/02/24 ?? Procedure(s): XR chest 2V ?? Accession Number(s): [id number] ? cc: Kesha Yang MD; Judy Weller SURVEYOR GEOPHYSICAL PROSPECTING ? EXAMINATION: ?? XR CHEST ? CLINICAL [...] DD/ 1131 ? TD/TT: 05/02/24 1139 ? Rip Sawyer: ? Procedure Note Donhussaininterpreter, Image - 05/08/[address] [address] XRay Report Signed Patient: Irving MckayMR#: [id number] 55 : 1985Acct:[id number] Age/Sex: 38 / FADM Date: 05/02/24 Loc: .[facility] Attending Dr: Kesha Castro MD Ordering Physician: Kesha Yang MD Date of Service: 05/02/24 Procedure(s): XR chest 2V Accession Number(s): [id number] cc: Kesha Yang MD; Judy Weller NP [...] 05/08/24 0918 DD/ 1131 TD/TT: 05/02/24 1139 Rip Sawyer: Result Nestor Castro MD IMG XR PROCEDURES Walt abner Result - Final * Partial Thromboplastin Time, Activated (APTT) (05/02/2024 11:08 AM EST) Partial Thromboplastin Time 28.4 26.0 - 36.8 [facility] Comment:For information rega rding the monitoring of direct thrombininhibitors, please refer to Pharmacy. Blood Venous blood specimen / Unknown 05/02/2024 11:08 AM EST 05/02/2024 1:00 PM EST us Kesha Castro MD LAB BLOOD ORDERABLES Final Result Performing Organization Address City/State/[facility] Co de Phone Number [facility] [address] [place] [phone] * (ABNORMAL) Prothrombin Time-INR (05/02/2024 11:08 AM EST) Prothrombin Time 10.2(L) 10.9 - 12.4 [facility] INTERNATIONAL NORM RATIO 0.9 0.9 - 1.1 [facility] Comment:INTERNATIONAL NORMAL IZED RATIO (INR) REFERENCE [...] BLOOD ORDERABLES Final Result Performing Organization Address City/[facility]/ZIP Co de Phone Number [facility] [address] [place] [phone] * (ABNORMAL) Comprehensive Metabolic Panel (05/02/2024 11:08 AM EST) Sodium 139 135 - 145 mmol/L [facility] Potassium 4.0 3.3 - 5.1 mmol/L [facility] Chloride 108 96 - 108 mmol/L [facility] Carbon Dioxide 24 22 - 29 mmol/L [facility] Anion Gap 11(L) 12 - 20 [facility] Urea Nitrogen (BUN) 13 9 - 16 mg/dL [facility] Creatinine, Serum 0.73 0.5 - 1.4 mg/dL [facility] Estimated Glomerular Filt Rate >60 [facility] Comment:Chronic Kidney Disea se: Estimated GFR < 60 mL/min/[id number] Kidney Disease: Estimated GFR < 15 mL/min/1.73m2 Glucose 102 60 - 115 mg/dL [facility] Calcium 9.0 8.4 - 10.2 mg/dL [facility] Bilirubin, Total 0.2 0.0 - 1.0 mg/dL [facility] Aspartate Amino Transferase 16 5 - 31 U/L [facility] Alanine Aminotransferase 17 0 - 31 U/L [facility] Total Protein 6.8 6.5 - 8.0 g/dL [facility] Albumin Level 4.0 3.5 - 5.0 g/dL [facility] Alkaline Phosphatase 76 39 - 117 U/L [facility] Blood Venous blood specimen / Unknown 05/02/2024 11:08 AM EST 05/02/2024 1:00 PM EST us Kesha Castro MD LAB BLOOD ORDERABLES Final Result Performing Organization Address [facility]/ZIP Co de Phone Number [facility] [address] [place] [address] [phone] documented in this encounter Visit Diagnoses Diagnosis Preop examination- Primary Unspecified pre-operative examination Moderate persistent asthma, unspecified whether complicated Moderate persistent asthma with exacerbation Unspecified asthma, with exacerbation documented in this encounter Additional Health Concerns Assessment Noted Time PHQ-9 Depression Total Score: 14 023 10:07 AM EDT documented as of this encounter Care Teams Inventory Coordinator Relationship Specialty Start Date End Date Judy Weller NP [address] [place] [address] PCP - General Family Medicine 01/03/24 documented as of this encounter
--- OUTSIDE RECORDS SUMMARY | 2024-06-01 10:36 | XMS_ITS | Encounter Summary ---
Author Organization [employer] Address [address] [facility] 7t [place] [address] Care Team Providers Care Labor Custodian Name Role Phone Judy Weller VINNIE Primary Care Provider [phone] Encounter Details Date Type Department Care Team ([facility] st Contact Info) Description 06/01/2024 9:20 AM EST Office Visit [facility] [address] [place] [phone] Toney Cartwright MD [address] [place], [place] [phone] Weakness Social History Tobacco Use Types Packs/Day Years [...] the past 12 months, has t he [employer], gas, oil or water Delivery Agent threatened to shut off services in your [...] Mass Index 30.8 06/01/2024 9:45 AM EST documented in this encounter Progress Notes * Toney Cartwright MD - 06/01/2024 9:20 AM EST Images from the original note were not included. Subjective History was provided by the patient. Irving Mckay is a 38 y.o. female who presents for evaluation of headache, congestion, right ear pain, chills, and generalized weakness for 9 days. Symptoms started the day after her B[place]osu[place]urgery in [place] (05/22/2024). Previously had unremarkable pre-op labs (05/02/2024). Has 9 surgical incisions (all ~1cm) are healing well without wound separation, redness, swelling, or discharge/bleeding.Denies fever, but feeling chills. Denies N/V/D. S/p BTL. Used Tramadol for surgical pain (only took3 doses total). Objective Vitals: 06/01/24 0945 BP: 134/75 BP Location: Left arm Patient Position: Sitting BP Cuff Size: Adult Pulse: (!) 119 Resp: 20 Temp: 96.7 ??F (35.9 ??C) TempSrc: Temporal SpO2: 99% Weight: 168 lb 6.4 oz (76.4 kg) Height: 5' 2 (1.575 m) Physical Exam Constitutional: General: She is not in acute distress. Appearance: Normal appearance. She is not ill-appearing, toxic-appearing or diaphoretic. HENT: Head: Normocephalic and atraumatic. Right Ear: Tympanic membrane, ear canal and external ear normal. Left Ear: Tympanic membrane, ear canal and external ear normal. Nose: Nose normal. Mouth/Throat: Mouth: Mucous membranes are moist. Pharynx: Oropharynx is clear. Eyes: Extraocular Movements: Extraocular movements intact. Conjunctiva/sclera: Conjunctivae normal. Pupils: Pupils are equal, round, and reactive to light. Cardiovascular: Rate and Rhythm: Normal rate and regular rhythm. Heart sounds: Normal heart sounds. Pulmonary: Effort: Pulmonary effort is normal. Breath sounds: Normal breath sounds. Comments: 5 lower back surgical incisions (~1cm) healing well without evidence of wound dehiscence,edema, erythema, or induration. Abdominal: General: Abdomen is flat. Bowel sounds are normal. There is no distension. Palpations: Abdomen is soft. Tenderness: There is no abdominal tenderness. There is no right CVA tenderness, left CVA tenderness, guarding or rebound. Comments: 4 abdominal surgical incisions (~1cm) healing well without evidence of wound dehiscence, edema, erythema, or induration. Musculoskeletal: General: Normal range of motion. Cervical back: Normal range of motion and neck supple. Skin: General: Skin is warm and dry. Neurological: General: No focal deficit present. Mental Status: She is alert and oriented to person, place, and time. Cranial Nerves: No cranial nerve deficit. Motor: No weakness. Gait: Gait normal. Deep Tendon Reflexes: Reflexes abnormal. Psychiatric: Mood and Affect: Mood normal. Behavior: Behavior normal. Thought Content: Thought content normal. Judgment: Judgment normal. Office Visit on 06/01/2024 Component Date Value Ref Range Status Rapid COVID Ag 06/01/2024 Negative Final QC Media Lot # 06/01/2024 [id number] Final Lot# Expiration Date 06/01/[id number] Final Rapid Influenza A Ag 06/01/2024 Negative Negative, Indeterminate Final QC Media Lot # 06/01/2024 [id number] Final Lot# Expiration Date 06/01/2024 [id number] Final Rapid Influenza B Ag 06/01/2024 Negative Negative, Indeterminate Final QC Media Lot # 06/01/2024 [id number] Final Lot# Expiration Date 06/01/[id number] Final Diagnoses and all orders for this visit: Weakness - POCT Rapid COVID Ag - POCT Influenza A manually resulted - POCT Influenza B manually resulted - CBC auto differential; Future - Comprehensive Metabolic Panel; Future - ibuprofen 600 MG tablet; Take 1 tablet (600 mg) by mouth every 8 (eight) hours if needed for mildpain, fever or headaches for up to 10 days. Patient presents to [facility] with 9-day duration of headache, congestion, right ear pain, chills, and generalized weakness Suspect viral URI Rapid COVID-19 and Influenza A/B negative today Recent BBL/liposuction surgery the day prior to the symptom onset No clinical evidence of wound infection or wound dehiscence Normal pulmonary exam and no respiratory distress O2 sat reassuring Will check CBC and CMP Rx Ibuprofen prn Discussed supportive care with ample hydration, sleep position and rest Also advised to discuss further with her surgeon OTC supportive medications reviewed Droplet precautions discussed Advised to contact the clinic if no improvement of symptoms Indications for UC/ER use reviewed documented in this encounter Plan of Treatment Upcoming Encounters Date Type Department Care Team (Late st Contact Info) Description 06/10/2024 11:30 AM EST Office Visit [facility] MEDICINE [address] [place], [place] [phone] Judy Weller NP [address] [place] [address] Scheduled Orders Name Type Priority Associated Diagnoses Orde r Schedule CBC auto differential Lab Routine Weakness Expected: 06/01/2024 (Approximate), Expires: 06/01/2025 Comprehensive Metabolic Panel Lab Routine Weakness Expected: 06/01/2024 (Approximate), Expires: 06/01/2025 documented as of this encounter Procedures Procedure Name Priority Date/Time Associated Diagnosis Comments POCT INFLUENZA B Routine 06/01/2024 9:55 AM EST Weakness POCT INFLUENZA A Routine 06/01/2024 9:55 AM EST Weakness POCT RAPID COVID ANTIGEN Routine 06/01/2024 9:51 AM EST Weakness documented in this encounter Results * POCT Influenza B manually resulted (06/01/2024 9:55 AM EST) Pathologist [facility] Rapid Influenza B Ag Negative Negative, Indeterminate QC Media Lot # [id number] Lot# Expiration Date Swab 06/01/2024 9:55 AM EST us Tonye Cartwright MD POINT OF CARE TEST ENTER/EDIT OR DERABLES Final Result * POCT Influenza A manually resulted (06/01/2024 9:55 AM EST) Pathologist [facility] Rapid Influenza A Ag Negative Negative, Indeterminate QC Media Lot # [id number] Lot# Expiration Date Swab Nasopharyngeal structure / Unknown 06/01/2024 9:55 AM EST us Toney Cartwright MD POINT OF CARE TEST ENTER/EDIT OR DERABLES Final Result * POCT Rapid COVID Ag (06/01/2024 9:51 AM EST) Pathologist [facility] Rapid COVID Ag Negative QC Media Lot # [id number] Lot# Expiration Date Swab 06/01/2024 9:51 AM EST us Toney Cartwright MD POINT OF CARE TEST ENTER/EDIT OR DERABLES Final Result documented in this encounter Visit Diagnoses Diagnosis Weakness Other malaise and fatigue documented in this encounter Additional Health Concerns Assessment Noted Time PHQ-9 Depression Total Score: 14 023 10:07 AM EDT documented as of this encounter Care Teams Labor Custodian Relationship Specialty Start Date End Date Judy Weller NP [address] [place] [phone] PCP - General Family Medicine 01/03/24 documented as of this encounter
--- OUTSIDE RECORDS SUMMARY | 2024-06-01 10:36 | XMS_ITS | Encounter Summary ---
Author Organization [employer] Address [address] [facility] 7t [place] [address] Care Team Providers Care Power Checker Name Role Phone Judy Weller VINNIE Primary Care Provider [phone] Encounter Details Date Type Department Care Team (Latest Contact Info) Description 06/01/2024 Travel Social History Tobacco Use Types Packs/Day Years [...] Description 06/10/2024 11:30 AM EST Office Visit [facility] MED[facility]INE [address] [place] [address] Judy Weller NP [address] [place] [address] documented as of this encounter Visit Diagnoses Not on filedocumented in this encounter Additional Health Concerns Assessment Noted Time PHQ-9 Depression Total Score: 14 023 10:07 AM EDT documented as of this encounter Care Teams Power Checker Relationship Specialty Start Date End Date Judy Weller NP [address] [place] [address] PCP - General Family Medicine 01/03/24 documented as of this encounter
--- OUTSIDE RECORDS SUMMARY | 2024-06-01 10:36 | XMS_ITS | Encounter Summary ---
Author Organization [employer] Address [address] [facility] 7t [place] [address] Care Team Providers Care Patient Case Coordinator Name Role Phone Judy Weller NP Primary Care Provider [phone] Reason for Visit * Reason Onset Date Comments Nurse Triage 05/31/2024 Encounter Details Date Type Department Care Team ([facility] st Contact Info) Description 05/31/2024 Telephone [facility] [address] [place], [place] [phone] Judy Weller NP [address] [place], [place] [phone] Nurse Triage Social History Tobacco Use Types Packs/Day Years [...] t he electric, gas, oil or water Utilize Health threatened to shut off services in your [...] encounter Miscellaneous Notes * Telephone Encounter - Ivon Bowles LPN - 05/31/2024 9:48 AM EST Triage call returned with BLS # [id number] [place]. Patient reports that she had [place]os[place] done in [place] on 05/22/24 of stomach and back. Patient since that time has had headache, ear pain and overall weakness. No redness or discharge from right ear. Nosore throat. Patient reports previously had occasional hand numbness but now has it in both hands three fingers and hands. Headache treated with OTC Acetaminophen and it improves but persists. Has good fluid intake and is drinking veggie smoothies as she feels her iron may be low. No evidence of infection at puncture sites no swelling warmth or pus. Has no recorded fever but feels hot inside . Had previously messaged provider in [place] and informed to continue discharge instructions and update as needed. Patient prefers to see MD in [place] to follow current symptoms. Patient denies weakness of face no difficulty swallowing no facial droop visual disturbances or numbness of face or mouth. Disposition reivewed and patient in agreement with plan. ASK/Brandan Cartwright tomorrow morning at 920am in [facility] as schedueled per protocol. Reviewed with patient home care recommendations, reasons to call back and symptoms that require immediate evaluation in UC or ER. Patient verbalized understanding and agrees. Multiple (2) protocols were used on this call. Disposition for Call: See in Office or Video Visit Today or Tomorrow Protocol Used: Headache (Adult) Protocol-Based Disposition: See in Office or Video Visit Today or Tomorrow Video visit not offered Positive Triage Question: * Moderate headache (e.g., interferes with normal activities) present > 24 hours and unexplained * All higher-acuity triage questions were negative Care Advice Discussed: * Pain Medicines * Cold Pack for Headache * Reasons To Call Back - Severe headache lasts over 2 hours after pain medicine - Headache lasts over 72 hours - Stiff neck occurs (can't touch chin to chest) - You become worse Protocol Used: Earache (Adult) Protocol-Based Disposition: See in Office or Video Visit Today or Tomorrow Positive Triage Question: * All other earaches (Exceptions: Brief ear pain lasting < 1 hour, and earache occurring during air travel.) * All higher-acuity triage questions were negative Care Advice Discussed: * Pain Medicines * Ear Discharge * Reasons To Call Back - Severe pain lasts over 2 hours after pain medicine - You become worse * Telephone Encounter - Dalton He - 05/31/2024 9:08 AM EST Symptoms: Headache, Numbness Outcome: Transfer to a nurse or provider NOW! Reason: Sudden worst headache of life now The caller accepted this outcome. documented in this encounter Plan of Treatment Upcoming Encounters Date Type Department Care Team (Late st Contact Info) Description 06/10/2024 11:30 AM EST Office Visit [facility] [address] [place] [address] Judy Weller NP [address] [place] [address] documented as of this encounter Visit Diagnoses Not on filedocumented in this encounter Additional Health Concerns Assessment Noted Time PHQ-9 Depression Total Score: 14 023 10:07 AM EDT documented as of this encounter Care Teams Patient Case Coordinator Relationship Specialty Start Date End Date Judy Weller NP [address] [place] [address] PCP - General Family Medicine 01/03/24 documented as of this encounter
--- OUTSIDE RECORDS SUMMARY | 2024-06-01 10:36 | XMS_ITS | Encounter Summary ---
Author Organization [employer] Address [address] [facility] 7t [place] [address] Care Team Providers Care Automotive Service Director Name Role Phone Judy Weller VINNIE Primary Care Provider [phone] Encounter Details Date Type Department Care Team (Latest Contact Info) Description 05/02/2024 Travel Social History Tobacco Use Types Packs/Day [...] Description 06/10/2024 11:30 AM EST Office Visit [facility] [address] [place] [address] Judy Weller NP [address] [place] [address] documented as of this encounter Visit Diagnoses Not on filedocumented in this encounter Additional Health Concerns Assessment Noted Time PHQ-9 Depression Total Score: 14 023 10:07 AM EDT documented as of this encounter Care Teams Automotive Service Director Relationship Specialty Start Date End Date Judy Weller NP [address] [place] [address] PCP - General Family Medicine 01/03/24 documented as of this encounter
--- OUTSIDE RECORDS SUMMARY | 2024-06-01 10:36 | XMS_ITS | Encounter Summary ---
Author Organization [employer] Address [address] [facility] 7[address] [place] [address] Care Team Providers Care Senior Program Manager Name Role Phone TeeJudy cotton VINNIE Primary Care Provider [phone] Reason for Visit * Reason Onset Date Comments Chart Prep 05/30/2024 Encounter Details Date Type Department Care Team (Late st Contact Info) Description 05/30/2024 Telephone [facility] [address] [place], [place] [phone] Mariam Martinez MA Chart Prep Social History Tobacco Use Types Packs/Day Years [...] encounter Miscellaneous Notes * Telephone Encounter - Mariam Martinez MA - 05/30/2024 3:34 PM EST Chart Prep Labs: done Images: done Vaccines due: Covid Due, Hep B Due, PCV20 Due, and Flu Due Referrals: Breast Surgery completed Screenings: Not Applicable Overdue care gaps: PHQ-9 documented in this encounter Plan of Treatment Upcoming Encounters Date Type Department Care Team (Late st Contact Info) Description 06/10/2024 11:30 AM EST Office Visit [facility] [address] [place] [address] Judy Weller NP [address] [place] [address] documented as of this encounter Visit Diagnoses Not on filedocumented in this encounter Additional Health Concerns Assessment Noted Time PHQ-9 Depression Total Score: 14 023 10:07 AM EDT documented as of this encounter Care Teams Senior Program Manager Relationship Specialty Start Date End Date Judy Weller NP [address] [place] [address] PCP - General Family Medicine 01/03/24 documented as of this encounter
[2024-06-01 11:52] LABS: MANUAL DIFF FLAG NO
[2024-06-01 12:00] LABS: Basophils Percent Auto 0.3 % (0-2); Mean Platelet Volume 8.6 fL (9.4-12.3); Red Cell Distribution Width 16.2 % (11.0-16.0); White Blood Count 10.1 X10*3/uL (4.8-10.8)
[2024-06-01 12:08] LABS: Eosinophils Absolute Auto 0.3 X10*3/uL (0.0-0.4); Eosinophils Percent Auto 2.9 % (0-4); Hemoglobin 7.2 g/dl (12.0-16.0); Imm Gran Abs Auto 0.31 X10*3/uL (0.00-0.03); Imm Gran Pct Auto 3.1 % (0.0-0.4); Lymphocytes Absolute Auto 2.3 X10*3/uL (1.2-4.9); Lymphocytes Percent Auto 22.4 % (20-40); Mean Corpuscular HGB Conc 30.8 g/dl (31.0-35.0); Mean Corpuscular Hemoglobin 28.3 pg (27.0-33.0); Mean Corpuscular Volume 92.1 fL (80.0-98.0); Monocytes Absolute Auto 0.6 X10*3/uL (0.1-1.2); Monocytes Percent Auto 5.7 % (2-11); Neutrophils Absolute Auto 6.6 x10*3/uL (2.0-8.3); Neutrophils Percent Auto 65.6 % (45-73); Platelet Count 433 X10*3/uL (160-400); Red Blood Count 2.54 X10*6/uL (4.20-5.50)
[2024-06-01 12:09] LABS: Hematocrit 23.4 % (37.0-47.0)
[2024-06-01 12:29] LABS: Alanine Aminotransferase 27 U/L (0-31); Albumin Level 3.6 g/dL (3.5-5.0); Alkaline Phosphatase 63 U/L (39-117); Anion Gap 12 (12-20); Aspartate Amino Transferase 21 U/L (5-31); Bilirubin Total 0.4 mg/dL (0.0-1.0); Blood Urea Nitrogen 9 mg/dL (9-16); Calcium 9.3 mg/dL (8.4-10.2); Carbon Dioxide 25 mmol/L (22-29); Chloride 109 mmol/L (96-108); Estimated Glomerular Filt Rate > 60; Glucose Random 108 mg/dL (60-115); Potassium 4.1 mmol/L (3.3-5.1); Sodium 142 mmol/L (135-145); Total Protein 6.6 g/dL (6.5-8.0)
== END 2024-06-01 10:32 | disposition home or self-care (01) ==
LOC: HO.HMGCLDS 10:31
PROVIDERS: PCP Nurse Practitioner Family; Visit Provider Family Medicine
DX: R53.1 Weakness (principal)
CPT/HCPCS: 36415; 80053; 85025

== ENCOUNTER 2024-06-01 20:03 | Emergency (ER) | payer MEDICAID, SELFPAY ==
[2024-06-01 20:04] VITALS: BP 116/77; PULSE 125; RESP 16; TEMP 36.7; O2SAT 100; BMI 30.2
--- NOTE | 2024-06-01 20:05 | ED_ITS ---
HPI - General Adult General Chief complaint: Recheck/Abnormal Lab/Rx Stated complaint: abnormal labs Time Seen by Provider: 06/01/24 21:26 Source: patient Mode of arrival: EMS Limitations: language barrier (Patient's speaks Uruguayan only, [facility] pole framer machine used) History of Present Illness ED Provider: Dr. Luigi Macdonald HPI narrative: 38-year-old female with a history of asthma who had a [place] butt lift in [facility] 1 week prior. She states that after the surgery she stayed in a hotel for 3 days in the [facility] area . She had a 3 day postop check by her surgeon, and then told that she could return home. Patient states that prior to the surgery she was feeling well but after the surgery she did feel lightheaded and dizzy. Patient's baseline H&H was 12 and 36.1 on 05/02/2024. She to feel lightheaded, dizzy, fatigued, short of breath, and had headaches especially with standing and walking. She contacted her PCP and had a repeat CBC today revealed an H&H of 7.2 and 23.4 which is a 5 point drop in her hemoglobin. Patient states that she is not having any pain in the area of her surgery. She denied any abdominal pain. She states that she did have a menstrual period after the surgery. This menstrual was on time, lasted 4-5 days but she did have heavier bleeding than normal. Related Data Previous Rx's ?Medication ?Instructions ?Recorded ferrous sulfate 325 mg (65 mg 325 mg PO BID 90 days #180 tabs 06/02/24 iron) tablet Allergies Allergy/AdvReac Type Severity Reaction Status Date / Time No Known Allergies Allergy Verified 06/01/24 20:10 Review of Systems 2 Review of Systems: Yes all other systems are reviewed and are negative [facility] Past Medical History [facility] Narrative: Social history: She denies tobacco, alcohol and drug use. Social History Social History (System 10/31/23 @ 11:35 by Diann Hinton) Smoked in Last 30 Days: No Use of substances other than those prescribed or required for medical reasons: No Advance Directives: No Advance Directives Information Provided: Yes Do you have a plan to hurt others: No Plan Patient : No Physical Exam ED Vital Signs: Vital Signs - 24 hr 06/01/24 20:04 06/01/24 22:35 02/01/25 22:52 Temperature 98.1 F 98.3 F 98.4 F Pulse Rate 125 H 103 H 99 Respiratory Rate 16 19 15 Blood Pressure 116/77 131/77 132/68 Pulse Oximetry 100 Oxygen Delivery Method Room Air 06/02/24 01:00 06/02/24 01:17 06/02/24 01:32 Temperature 98.5 F 98.5 F 98.5 F Pulse Rate 91 96 87 Respiratory Rate 16 20 20 Blood Pressure 122/78 125/68 133/85 Pulse Oximetry Oxygen Delivery Method 06/02/24 03:32 Temperature 98.3 F Pulse Rate 87 Respiratory Rate 18 Blood Pressure 119/78 Pulse Oximetry Oxygen Delivery Method BMI result Body Mass Index 30.2 Vital signs revealed an elevated heart rate of 125 otherwise unremarkable Exam: General: Awake, alert in no distress Head: Normocephalic, atraumatic Lung: breath sounds symmetric, no wheezing, rales or rhonchi Chest: symmetric movement, nontender Heart: Tachycardia with a regular rhythm normal S1, S2 no murmurs or rubs Abdomen: soft, non-tender, nondistended, normal bowel sounds Psych: Pleasant, cooperative Course Course Course Narrative: This is a Rapid Medical Exam performed in triage by Abbie Medel PA-C. Full HPI, ROS and PE to be performed by primary ED provider. 38-year-old [place]ayan-speaking female PMHx BBL 1 week ago in [facility] presenting to the ED c/o anemia noted on outpatient labs earlier today. Went to PCP today due to lightheadedness/dizziness & weakness. Admits has been have sx since 2 days after surgery. admits that her menses occurred after surgery & bled heavy x5 days, denies bleeding at present. Admits to black stool (s/p eating beats). denies other known bleeding at present. PE: pale, ambulating w/steady gait Plan: Labs, T&S, UA, Orthos Medications Administered Discontinued Medications Generic Name Dose Route Start Last Admin Trade Name Freq PRN Reason Stop Dose Admin Lorazepam 1 mg 06/01/24 23:19 06/02/24 00:45 Lorazepam 2 Mg/Ml Vial IVPUSH 06/01/24 23:20 Not Given STAT STA Medical Decision Making Medical Decision Making MDM Narrative: 38-year-old female with a history of asthma who had a [place] butt lift in [facility] 1 week prior, after the surgery she did have this and dizziness.. She did have a postop check 3 days after the surgery and was cleared by the surgeon. The patient was H&H today was 7.2 and 23.4-this was done by your PCP and confirmed in the ED with an H&H of 7.0 and 22.4 with a normal MCV of 91.4. Differential diagnosis: ?Includes but is not limited to anemia secondary to surgical blood loss, iron deficient anemia, menstrual blood loss Course: 22:14 The patient has a normocytic anemia with a 5 point drop in her hemoglobin from 12 to 7.0 which I believe is most likely caused by surgical blood loss. I did discuss this with the patient. The patient will be transfused 2 units packed red blood cells with a goal of getting her hematocrit into the 28-30% range. 04:10 Patient was transfused 2 units of PRBCs with no complications. Repeat H&H is 9.4 and 28.6. Patient will be discharged home with a prescription for Ferrous Sulfate 325 mg, BID x 90 days. She was advised to folllow up with her PCP for repeat H&H. She was given printed and verbal instructions and discharged to home. Admission/Observation Consideration of admission/observation: Escalation of care including admission/observation considered (Yes) Lab Data MDM Lab Attestation statement: I reviewed the patient's lab results. My independent interpretation patient's laboratory evaluation is as follows: Normocytic anemia with an H&H of 7 and 22 and 0.4 with an MCV of 91.4. CMP was normal except for an elevated glucose of 128. PT/INR were normal. 06/02/24 03:38 06/01/24 20:27 Labs: Lab Results 06/01/24 06/02/24 06/02/24 Range/Units 20:27 00:44 03:38 WBC 10.3 11.4 H (4.8-10.8) X10*3/uL RBC 2.45 L 3.19 L D (4.20-5.50) X10*6/uL Hgb 7.0 L* 9.4 L D (12.0-16.0) g/dl Hct 22.4 L 28.6 L D (37.0-47.0) % MCV 91.4 89.7 (80.0-98.0) fL MCH 28.6 29.5 (27.0-33.0) pg MCHC 31.3 32.9 (31.0-35.0) g/dl RDW 16.1 H 15.1 (11.0-16.0) % Plt Count 424 H 354 (160-400) X10*3/uL MPV 8.6 L 8.1 L (9.4-12.3) fL Immature Gran % (Auto) 2.2 H 1.8 H (0.0-0.4) % Neut % (Auto) 63.2 62.2 (45-73) % Lymph % (Auto) 25.1 25.8 (20-40) % Catron % (Auto) 5.3 6.1 (2-11) % Eos % (Auto) 3.9 3.7 (0-4) % Baso % (Auto) 0.3 0.4 (0-2) % Lymph # (Auto) 2.6 2.9 (1.2-4.9) X10*3/uL Catron # (Auto) 0.6 0.7 (0.1-1.2) X10*3/uL Eos # (Auto) 0.4 0.4 (0.0-0.4) X10*3/uL Baso # (Auto) 0.0 0.0 (0.0-0.2) X10*3/uL Abs Immat Gran (auto) 0.23 H 0.20 H (0.00-0.03) X10*3/uL Absolute Neuts (auto) 6.5 7.1 (2.0-8.3) x10*3/uL Absolute Nucleated RBC 0.000 0.020 H (0.0-0.012) X10*3/uL Nucleated RBC % (auto) 0.0 0.2 (0.0-0.2) /100WBC PT 10.6 L (10.9-12.4) SEC INR 0.9 (0.9-1.1) APTT 27.5 (26.0-36.8) SEC Sodium 141 (135-145) mmol/L Potassium 4.1 (3.3-5.1) mmol/L Chloride 109 H (96-108) mmol/L Carbon Dioxide 24 (22-29) mmol/L Anion Gap 12 (12-20) BUN 10 (9-16) mg/dL Creatinine 0.62 (0.5-1.4) mg/dL Estim Creat Clear Calc 117.7 Estimated GFR > 60 Random Glucose 128 H (60-115) mg/dL Calcium 8.7 D (8.4-10.2) mg/dL Magnesium 2.1 (1.6-2.6) mg/dL Total Bilirubin 0.4 (0.0-1.0) mg/dL Direct Bilirubin 0.1 (0.0-0.5) mg/dL AST 18 (5-31) U/L ALT 24 (0-31) U/L Alkaline Phosphatase 57 (39-117) U/L Total Protein 6.5 (6.5-8.0) g/dL Albumin 3.6 (3.5-5.0) g/dL Lipase 38 (8-78) U/L Beta HCG, Quant < 2 mIU/mL Urine Color Yellow Urine Appearance Clear Urine pH 6.5 (5.0-9.0) Ur Specific [place] 1.010 (1.005-1.025) Urine Protein Negative (Neg-Trace) mg/dL Urine Glucose (UA) Negative (Negative) mg/dL Urine Ketones Negative (Negative) mg/dL Urine Blood Negative (Negative) Urine Nitrite Negative (Negative) Ur Leukocyte Esterase Small (1+) H (Negative) Urine RBC 0-2 (0-2) /HPF Urine WBC 11-20 H (0-5) /HPF Ur Squamous Epith Cells 6-10 (0-2) /HPF Urine Bacteria 1+ (None Seen) Hyaline Casts 0-2 (0-2) /LPF Urine Test NEGATIVE (NEGATIVE) Blood Type A Positive Antibody Screen NEGATIVE Crossmatch See Detail Radiology Impression Discussion of test interpretation with radiology: I have reviewed the radiologist's reading. Radiologist Impression: XR chest 2V IMPRESSION: No acute airspace disease. Negative. Electronically signed by: Jimenez Carpenter MD 05/08/2024 09:18 AM Prescription Management I considered prescription management with: Other (ferrous sulfate 325mg BID x 90 days) Discharge Plan Discharge Clinical Impression: Normocytic anemia, Secondary anemia Patient Disposition: Home, Self-Care Instructions: Anemia (ED) Additional Instructions: Your symptoms were due to severe anemia. Your hemoglobin and hematocrit were 7 and 22.4 %. You received 2 units of packed red blood cells in your hemoglobin and hematocrit increased to 9.4 and 28.6% Take ferrous sulfate 325 mg pills, 1 pill every 12 hours for 3 months. You should follow up with your doctor in 2 weeks to have a repeat hematocrit and hemoglobin. Please return to the emergency department if your symptoms get worse or if you develop any symptoms that are concerning to you. Prescriptions: New ferrous sulfate 325 mg (65 mg iron) tablet 325 mg PO BID 90 Days Qty: 180 0RF Interventions: ED Discharge Assessment Last Done: 06/02/24 04:42 Discharge Date/Time: 06/02/24 04:43 Print Language: Uruguayan
--- NOTE | 2024-06-01 20:09 | ECG_ITS ---
Test Reason : lt headed/dizzy Blood Pressure : */* mmHG Vent. Rate : 100 BPM Atrial Rate : 100 BPM P-R Int : 134 ms QRS Dur : 76 ms QT Int : 344 ms P-R-T Axes : 57 35 24 degrees QTcB Int : 443 ms Normal sinus rhythm Low voltage QRS Borderline ECG No previous ECGs available Referred By: Abbie Medel Electronically Signed By: CHARISSE GANDARA
--- OUTSIDE RECORDS SUMMARY | 2024-06-01 20:31 | XMS_ITS | Encounter Summary ---
Author Organization [employer] Address [address] [facility] 7t [place] [address] Care Team Providers Care Computer Networking Instructor Name Role Phone Judy Weller VINNIE Primary Care Provider [phone] Encounter Details Date Type Department Care Team [...] Description 06/10/2024 11:30 AM EST Office Visit [facility] [address] [place] [address] Judy Weller NP [address] [place] [address] documented as of this encounter Visit Diagnoses Not on filedocumented in this encounter Additional Health Concerns Assessment Noted Time PHQ-9 Depression Total Score: 14 023 10:07 AM EDT documented as of this encounter Care Teams Computer Networking Instructor Relationship Specialty Start Date End Date Judy Weller NP [address] [place] [address] PCP - General Family Medicine 01/03/24 documented as of this encounter
--- OUTSIDE RECORDS SUMMARY | 2024-06-01 20:31 | XMS_ITS | Encounter Summary ---
Author Organization [employer] Address [address] [facility] 7t [place] [address] Care Team Providers Care It Consultant Name Role Phone TeeJudy cotton VINNIE Primary Care Provider [phone] Reason for Visit * Reason Onset Date Comments Chart Prep 05/30/2024 Encounter Details Date Type Department Care Team (Late st Contact Info) Description 05/30/2024 Telephone [facility] [address] [place], [place] [phone] Mariam Martinez MA Chart Prep Social History [...] Description 06/10/2024 11:30 AM EST Office Visit [facility] [address] [place] [address] Judy Weller NP [address] [place] [address] documented as of this encounter Visit Diagnoses Not on filedocumented in this encounter Additional Health Concerns Assessment Noted Time PHQ-9 Depression Total Score: 14 023 10:07 AM EDT documented as of this encounter Care Teams It Consultant Relationship Specialty Start Date End Date Judy Weller NP [address] [place] [address] PCP - General Family Medicine 01/03/24 documented as of this encounter
--- OUTSIDE RECORDS SUMMARY | 2024-06-01 20:31 | XMS_ITS | Encounter Summary ---
Author Organization [employer] Address [address] [facility] 7t [place] [address] Care Team Providers Care Musical Engineer Name Role Phone Cristal WildeP Primary Care Provider [phone] Judy Weller NP Primary Care Provider [phone] Encounter Details Date Type Department Care Team (Late st Contact Info) Description 02/03/2023 Abstract [facility] [address] [place], [place] [phone] Cristal Wilde FNP [address] [place] [address] Social History Tobacco Use Types Packs/Day Years [...] 11:30 AM EST Office Visit [facility] [address] [place] [address] Judy Weller NP [address] [place] [address] documented as of this encounter Visit Diagnoses Not on filedocumented in this encounter Additional Health Concerns Assessment Noted Time PHQ-9 Depression Total Score: 14 023 10:07 AM EDT documented as of this encounter Care Teams Musical Engineer Relationship Specialty Start Date End Date Cristal Wilde FNP [address] [place] [address] PCP - General Family Medicine 02/03/23 01/02/24 Judy Weller NP [address] [place] [address] PCP - General Family Medicine 01/03/24 documented as of this encounter
--- OUTSIDE RECORDS SUMMARY | 2024-06-01 20:31 | XMS_ITS | Encounter Summary ---
Author Organization [employer] Address [address] [facility] [address]t [place] [address] Care Team Providers Care Full Stack Web Developer Name Role Phone Judy Weller VINNIE Primary Care Provider [phone] Encounter Details Date Type Department Care Team ([facility] st Contact Info) Description 06/01/2024 9:20 AM EST Office Visit [facility] [address] [place] [address] [phone] Toney Cartwright MD [address] [place], [place] [phone] Weakness Social History Tobacco Use Types Packs/Day [...] the past 12 months, has t he [employer], gas, oil or water theAudience threatened to shut off services in your [...] started the day after her [place] (05/22/2024). Previously had unremarkable pre-op labs (05/02/2024). [...] Indeterminate Final QC Media Lot # 06/01/2024 [id number] Final Lot# Expiration Date 06/01/2024 [id number] Final Rapid Influenza B Ag 06/01/2024 Negative Negative, Indeterminate Final QC Media Lot # 06/01/2024 [id number] Final Lot# Expiration Date 06/01/2024 [id number] Final [...] to 10 days. Patient presents to Monday [facility] with 9-day duration of headache, congestion, right [...] of symptoms Indications for UC/ER use reviewed Addendum: Hgb dropped from 12.0 (05/02/2024) to 7.2 (06/01/2024). In-office HR 119. Lab result discussed with thepatient. Concerning for possible interna bleeding given recent surgery. Advised to go to [facility] ER today. Patient agrees. [facility] ER called to coordinate care. documented in this encounter Plan of Treatment Upcoming Encounters Date Type Department Care Team (Late st Contact Info) Description 06/10/2024 11:30 AM EST Office Visit [facility] [address] [place] [address] Judy Weller, VINNIE [address] [place] [address] documented as of this encounter Procedures Procedure Name Priority Date/Time Associated Diagnosis Comments CBC WITH AUTO DIFFERENTIAL Routine 06/01/2024 10:41 AM EST Weakness COMPREHENSIVE METABOLIC PANEL Routine 06/01/2024 10:41 AM EST Weakness POCT INFLUENZA B Routine 06/01/2024 9:55 AM EST Weakness POCT INFLUENZA A Routine 06/01/2024 9:55 AM EST Weakness POCT RAPID COVID ANTIGEN Routine 06/01/2024 9:51 AM EST Weakness documented in this encounter Results * (ABNORMAL) Comprehensive Metabolic Panel (06/01/2024 10:41 AM EST) Sodium 142 135 - 145 mmol/L [facility] Potassium 4.1 3.3 - 5.1 mmol/L [facility] Chloride 109(H) 96 - 108 mmol/L [facility] Carbon Dioxide 25 22 - 29 mmol/L [facility] Anion Gap 12 12 - 20 [facility] Urea Nitrogen (BUN) 9 9 - 16 mg/dL [facility] Creatinine, Serum 0.61 0.5 - 1.4 mg/dL [facility] Estimated Glomerular Filt Rate >60 [facility] Comment:Chronic Kidney Disea se: Estimated GFR < 60 mL/min/1.96a9Oyipir Kidney Disease: Estimated GFR < 15 mL/min/1.73m2 Glucose 108 60 - 115 mg/dL [facility] Calcium 9.3 8.4 - 10.2 mg/dL [facility] Bilirubin, Total 0.4 0.0 - 1.0 mg/dL [facility] Aspartate Amino Transferase 21 5 - 31 U/L [facility] Alanine Aminotransferase 27 0 - 31 U/L [facility] Total Protein 6.6 6.5 - 8.0 g/dL [facility] Albumin Level 3.6 3.5 - 5.0 g/dL [facility] Alkaline Phosphatase 63 39 - 117 U/L [facility] Blood Venous blood specimen / Unknown 06/01/2024 10:41 AM EST 06/01/2024 11:48 AM EST us Toney Cartwright MD LAB BLOOD ORDERABLES Final Resul t [facility] [address] [place] [address] [phone] * (ABNORMAL) CBC auto differential (06/01/2024 10:41 AM EST) White Blood Count 10.1 4.8 - 10.8 X10*3/uL [facility] Red Blood Count 2.54(L) 4.20 - 5.50 X10*6/uL [facility] Hemoglobin 7.2(L) 12.0 - 16.0 g/dl [facility] Hematocrit 23.4(L) 37.0 - 47.0 % [facility] Comment:REPEATED Mean Corpuscular Volume 92.1 80.0 - 98.0 fL [facility] Mean Corpuscular Hemoglobin 28.3 27.0 - 33.0 pg [facility] Mean Corpuscular HGB Conc 30.8(L) 31.0 - 35.0 g/dl [facility] Red Cell Distribution Width 16.2(H) 11.0 - 16.0 % [facility] Platelet Count 433(H) 160 - 400 X10*3/uL [facility] Mean Platelet Volume 8.6(L) 9.4 - 12.3 fL [facility] Neutrophils Percent Auto 65.6 45 - 73 % [facility] Imm Gran Pct Auto 3.1(H) 0.0 - 0.4 % [facility] Lymphocytes Percent Auto 22.4 20 - 40 % [facility] Monocytes Percent Auto 5.7 2 - 11 % [facility] Eosinophils Percent Auto 2.9 0 - 4 % [facility] Basophils Percent Auto 0.3 0 - 2 % [facility] NRBC Pct Auto 0.0 0.0 - 0.2 /100WBC [facility] Neutrophils Absolute Auto 6.6 2.0 - 8.3 x10*3/uL [facility] Imm Gran Abs Auto 0.31(H) 0.00 - 0.03 X10*3/uL [facility] Lymphocytes Absolute Auto 2.3 1.2 - 4.9 X10*3/uL [facility] Monocytes Absolute Auto 0.6 0.1 - 1.2 X10*3/uL [facility] Eosinophils Absolute Auto 0.3 0.0 - 0.4 X10*3/uL [facility] Basophils Absolute Auto 0.0 0.0 - 0.2 X10*3/uL [facility] NRBC Abs Auto 0.000 0.0 - 0.012 X10*3/uL [facility] Blood Venous blood specimen / Unknown 06/01/2024 10:41 AM EST 06/01/2024 11:48 AM EST us Toney Cartwright MD LAB BLOOD ORDERABLES Final Resul t Performing Organization Address City/State/[facility] Co de Phone Number [facility] [address] [place] [phone] * POCT Influenza B manually resulted (06/01/2024 9:55 AM EST) [facility] Rapid Influenza B Ag Negative Negative, Indeterminate QC Media Lot # [id number] Lot# Expiration Date Swab 06/01/2024 9:55 AM EST us Toney Cartwright MD POINT OF CARE TEST ENTER/EDIT OR DERABLES Final Result * POCT Influenza A manually resulted (06/01/2024 9:55 AM EST) Rapid Influenza A Ag Negative Negative, Indeterminate QC Media Lot # [id number] Lot# Expiration Date 8,026 Swab Nasopharyngeal structure / Unknown 06/01/2024 9:55 AM EST us Toney Cartwright MD POINT OF CARE TEST ENTER/EDIT OR DERABLES Final Result * POCT Rapid COVID Ag (06/01/2024 9:51 AM EST) Rapid COVID Ag Negative QC Media Lot # [id number] Lot# Expiration Date [id number] Swab 06/01/2024 9:51 AM EST us Toney Cartwright MD POINT OF CARE TEST ENTER/EDIT OR DERABLES Final Result documented in this encounter Visit Diagnoses Diagnosis Weakness Other malaise and fatigue documented in this encounter Additional Health Concerns Assessment Noted Time PHQ-9 Depression Total Score: 14 023 10:07 AM EDT documented as of this encounter Care Teams Full Stack Web Developer Relationship Specialty Start Date End Date Judy Weller NP [address] [place] [phone] PCP - General Family Medicine 01/03/24 documented as of this encounter
--- OUTSIDE RECORDS SUMMARY | 2024-06-01 20:31 | XMS_ITS | Encounter Summary ---
Author Organization [employer] Address [address] [facility] 7t [place] [address] Care Team Providers Care Buffing Machine Operator Name Role Phone Judy Weller VINNIE Primary Care Provider [phone] Encounter Details Date Type Department Care Team [...] 06/10/2024 11:30 AM EST Office Visit [facility] [address] [place] [address] Judy Weller NP [address] [place] [address] documented as of this encounter Visit Diagnoses Not on filedocumented in this encounter Additional Health Concerns Assessment Noted Time PHQ-9 Depression Total Score: 14 023 10:07 AM EDT documented as of this encounter Care Teams Buffing Machine Operator Relationship Specialty Start Date End Date Judy Weller NP [address] [place] [address] PCP - General Family Medicine 01/03/24 documented as of this encounter
--- OUTSIDE RECORDS SUMMARY | 2024-06-01 20:31 | XMS_ITS | Encounter Summary ---
Author Organization [employer] Address [address] [facility] 7t [place] [address] Care Team Providers Care Air Support Control Officer Name Role Phone Judy Weller NP Primary Care Provider [phone] Reason for Visit * Reason Onset Date Comments Pre-op Notes 05/08/2024 Encounter Details Date Type Department Care Team ([facility] st Contact Info) Description 05/08/2024 Telephone [facility] [address] [place], [place] [phone] Judy Weller NP [address] [place], [place] [phone] Pre-op Notes Social History Tobacco Use Types [...] notes, labs and Xray were faxed to [facility] fax [phone] tel [phone]. Confirmation received documented in this encounter Plan of Treatment Upcoming Encounters Date Type Department Care Team (Late st Contact Info) Description 06/10/2024 11:30 AM EST Office Visit [facility] [address] [place] [address] Judy Weller NP [address] [place] [address] documented as of this encounter Visit Diagnoses Not on filedocumented in this encounter Additional Health Concerns Assessment Noted Time PHQ-9 Depression Total Score: 14 023 10:07 AM EDT documented as of this encounter Care Teams Air Support Control Officer Relationship Specialty Start Date End Date Judy Weller NP [address] [place] [address] PCP - General Family Medicine 01/03/24 documented as of this encounter
--- OUTSIDE RECORDS SUMMARY | 2024-06-01 20:31 | XMS_ITS | Encounter Summary ---
Author Organization [employer] Address [address] [facility] [address] [place] [address] Care Team Providers Care Overlock Operator Name Role Phone Cristal Wilde Primary Care Provider [phone] Judy Weller NP Primary Care Provider [phone] Encounter Details Date Type Department Care Team (Late st Contact Info) Description 01/20/2023 Orders Only [facility] [address] [place], [place] [phone] Cristal Wilde FNP [address] [place] [address] Social History Tobacco Use Types Packs/Day Years [...] 11:30 AM EST Office Visit [facility] [address] [place] [address] Judy Weller NP [address] [place] [address] documented as of this encounter Visit Diagnoses Not on filedocumented in this encounter Care Teams Overlock Operator Relationship Specialty Start Date End Date Cristal Wilde FNP [address] [place] [address] PCP - General Family Medicine 02/03/23 01/02/24 Judy Weller NP [address] [place] [phone] PCP - General Family Medicine 01/03/24 documented as of this encounter
--- OUTSIDE RECORDS SUMMARY | 2024-06-01 20:31 | XMS_ITS | Encounter Summary ---
Author Organization [employer] Address [address] [facility] 7t [place] [address] Care Team Providers Care Aircraft Structure Mechanic Name Role Phone Judy Weller NP Primary Care Provider [phone] Reason for Visit * Reason Onset Date Comments Nurse Triage 05/31/2024 Encounter Details Date Type Department Care Team ([facility] st Contact Info) Description 05/31/2024 Telephone [facility] [address] [place], [place] [phone] Judy Weller NP [address] [place], [place] [phone] Nurse Triage Social History Tobacco Use Types [...] t he electric, gas, oil or water sli[employer] threatened to shut off services in your [...] EST Triage call returned with BLS # [id number] Shelbi. Patient reports that she had [place]os[place] done in [place] on 05/22/24 of stomach and back. Patient [...] inside . Had previously messaged provider in [place] and informed to continue discharge instructions and update as needed. Patient prefers to see MD in [place] to follow current symptoms. Patient denies weakness of face no difficulty swallowing no facial droop visual disturbances or numbness of face or mouth. Disposition reivewed and patient in agreement with plan. ASK/Brandan Cartwright tomorrow morning at 920am in [facility] as schedueled per protocol. Reviewed with patient [...] Description 06/10/2024 11:30 AM EST Office Visit [facility] [address] [place] [address] Judy Weller NP [address] [place] [address] documented as of this encounter Visit Diagnoses Not on filedocumented in this encounter Additional Health Concerns Assessment Noted Time PHQ-9 Depression Total Score: 14 023 10:07 AM EDT documented as of this encounter Care Teams Aircraft Structure Mechanic Relationship Specialty Start Date End Date Judy Weller NP [address] [place] [address] PCP - General Family Medicine 01/03/24 documented as of this encounter
--- OUTSIDE RECORDS SUMMARY | 2024-06-01 20:31 | XMS_ITS | Clinical Summary ---
Author Organization [employer] Address [address] [facility] 7t [place] [address] Care Team Providers Care Principal Gifts Officer Name Role Phone Judy Weller VINNIE Primary Care Provider [phone] Allergies No known active allergies Medications albuterol [...] 9:20 AM EST Office Visit [facility] [address] [place] [phone] Toney Cartwright MD Weakness 06/01/2024 Travel 05/31/2024 Telephone [facility] [address] [place] [phone] Judy Weller NP Nurse Triage 05/30/[address] [address] Mariam Martinez MA Chart Prep 05/13/[address] [address] Kesha Yang MD 05/08/[address] [address] Judy Weller NP Pre-op Notes 05/08/[address] [address] Mariam Martinez MA Chart Prep 05/02/2024 10:15 AM EST Office Visit [address] [address] Kesha Yang MD Preop examination (Primary Dx); Moderate persistent asthma, unspecified whether complicated; Moderate persistent asthma with exacerbation 05/02/2024 Travel 04/15/2024 Travel 04/11/[address] [address] Judy Weller NP 04/11/[address] [address] Judy Weller NP Lab Orders 04/01/2024 1:00 PM EST Office Visit [address] [address] Harvinder Kim MD Moderate persistent asthma with exacerbation (Primary Dx) 04/01/[address] [address] Judy Weller NP Nurse Triage 03/26/2024 Refill [facility] [address] [place] [address] Judy Weller NP 03/21/[address] [address] Judy Weller NP 03/18/2024 Refill [facility] [address] [place] [address] Judy Weller NP 03/14/2024 Refill [facility] [address] [place] [address] Judy Weller NP 03/12/2024 Refill [facility] [address] [place] [address] Judy Weller NP 03/11/2024 9:00 AM EST Office Visit [facility] [address] [place] [address] Judy Weller NP Routine health maintenance (Primary Dx); Moderate persistent asthma, unspecified whether complicated; Obesity (BMI 30.0-34.9); Dietary counseling; Exercise counseling; Family history of breast cancer; Carpal tunnel syndrome on both sides; Anemia, unspecified type 03/11/2024 Travel 03/08/2024 Telephone [facility] [address] [place] [address] Luz Salter MA CHART PREP 03/04/2024 Patient Outreach [facility] [address] [place] [address] Judy Weller NP Pre-visit Planning (SDOH negative, [...] 11:30 AM EST Office Visit [facility] [address] [place], [place] [phone] Judy Weller NP [address] [place] [address] Health Maintenance Due Date Last Done Comments [...] Procedure Name Priority Date/Time Associated Diagnosis Comments COMPREHENSIVE METABOLIC PANEL Routine 06/01/2024 10:41 AM EST Weakness CBC WITH AUTO DIFFERENTIAL Routine 06/01/2024 10:41 AM EST Weakness POCT [...] Recently Relevant to Health Maintenance Results * (ABNORMAL) CBC auto differential (06/01/2024 10:41 AM EST) Only the most recent of3 resultswithin the time period is included. White Blood Count 10.1 4.8 - 10.8 X10*3/uL [facility] Red Blood Count 2.54(L) 4.20 - 5.50 X10*6/uL [facility] Hemoglobin 7.2(L) 12.0 - 16.0 g/dl [facility] Hematocrit 23.4(L) 37.0 - 47.0 % [facility] Comment:REPEATED Mean Corpuscular Volume 92.1 80.0 - 98.0 fL [facility] Mean Corpuscular Hemoglobin 28.3 27.0 - 33.0 pg [facility] Mean Corpuscular HGB Conc 30.8(L) 31.0 - 35.0 g/dl [facility] Red Cell Distribution Width 16.2(H) 11.0 - 16.0 % [facility] Platelet Count 433(H) 160 - 400 X10*3/uL [facility] Mean Platelet Volume 8.6(L) 9.4 - 12.3 fL [facility] Neutrophils Percent Auto 65.6 45 - 73 % [facility] Imm Gran Pct Auto 3.1(H) 0.0 - 0.4 % [facility] Lymphocytes Percent Auto 22.4 20 - 40 % [facility] Monocytes Percent Auto 5.7 2 - 11 % [facility] Eosinophils Percent Auto 2.9 0 - 4 % [facility] Basophils Percent Auto 0.3 0 - 2 % [facility] NRBC Pct Auto 0.0 0.0 - 0.2 /100WBC [facility] Neutrophils Absolute Auto 6.6 2.0 - 8.3 x10*3/uL [facility] Imm Gran Abs Auto 0.31(H) 0.00 - 0.03 X10*3/uL [facility] Lymphocytes Absolute Auto 2.3 1.2 - 4.9 X10*3/uL [facility] Monocytes Absolute Auto 0.6 0.1 - 1.2 X10*3/uL [facility] Eosinophils Absolute Auto 0.3 0.0 - 0.4 X10*3/uL [facility] Basophils Absolute Auto 0.0 0.0 - 0.2 X10*3/uL [facility] NRBC Abs Auto 0.000 0.0 - 0.012 X10*3/uL [facility] Blood Venous blood specimen / Unknown 06/01/2024 10:41 AM EST 06/01/2024 11:48 AM EST us Toney Cartwright MD LAB BLOOD ORDERABLES Final Resul t [facility] [address] [place] [phone] * (ABNORMAL) Comprehensive Metabolic Panel (06/01/2024 10:41 AM EST) Only the most recent of3 resultswithin the time period is included. Sodium 142 135 - 145 mmol/L [facility] Potassium 4.1 3.3 - 5.1 mmol/L [facility] Chloride 109(H) 96 - 108 mmol/L [facility] Carbon Dioxide 25 22 - 29 mmol/L [facility] Anion Gap 12 12 - 20 [facility] Urea Nitrogen (BUN) 9 9 - 16 mg/dL [facility] Creatinine, Serum 0.61 0.5 - 1.4 mg/dL [facility] Estimated Glomerular Filt Rate >60 [facility] Comment:Chronic Kidney Disea se: Estimated GFR < 60 mL/min/[id number] Kidney Disease: Estimated GFR < 15 mL/min/1.73m2 Glucose 108 60 - 115 mg/dL [facility] Calcium 9.3 8.4 - 10.2 mg/dL [facility] Bilirubin, Total 0.4 0.0 - 1.0 mg/dL [facility] Aspartate Amino Transferase 21 5 - 31 U/L [facility] Alanine Aminotransferase 27 0 - 31 U/L [facility] Total Protein 6.6 6.5 - 8.0 g/dL [facility] Albumin Level 3.6 3.5 - 5.0 g/dL [facility] Alkaline Phosphatase 63 39 - 117 U/L [facility] Blood Venous blood specimen / Unknown 06/01/2024 10:41 AM EST 06/01/2024 11:48 AM EST us Toney Cartwright MD LAB BLOOD ORDERABLES Final Resul t [facility] [address] [place] [phone] [phone] * POCT Influenza B manually resulted (06/01/2024 9:55 AM EST) Only the most recent of2 resultswithin the time period is included. Rapid Influenza B Ag Negative Negative, Indeterminate QC Media Lot # [id number] Lot# Expiration Date Swab 06/01/2024 9:55 AM EST us Toney Cartwright MD POINT OF CARE TEST ENTER/EDIT OR DERABLES Final Result * POCT Influenza A manually resulted (06/01/2024 9:55 AM EST) Only the most recent of2 resultswithin the time period is included. Rapid Influenza A Ag Negative Negative, Indeterminate QC Media Lot # [id number] Lot# Expiration Date Swab Nasopharyngeal structure / Unknown 06/01/2024 9:55 AM EST us Toney Cartwright MD POINT OF CARE TEST ENTER/EDIT OR DERABLES Final Result * POCT Rapid COVID Ag (06/01/2024 9:51 AM EST) Only the most recent of2 resultswithin the time period is included. Rapid COVID Ag Negative QC Media Lot # [id number] Lot# Expiration Date 026 Swab 06/01/2024 9:51 AM EST us Toney Cartwright MD POINT OF CARE TEST ENTER/EDIT OR DERABLES Final Result * XR Chest 2 Views (05/02/2024 11:31 AM EST) Anatomical Region Laterality Modality Chest Radiographic Betty ging 05/02/2024 11:3 1 AM EST Narrative 05/08/2024 9:20 AM EST ? [facility] ?[address] ?[place] [address] ?XRay Report ? Signed ? Patient: Nely,Zuledka ?MR#: [id number] ?? 55 ? : 1985 ?Acct:[id number] ? Age/Sex: 38 / F ?ADM Date: 05/02/24 ? Loc: HO.HHCL ? Attending Dr: Kesha Castro MD ? Ordering Physician: Kesha Yang MD ?? Date of Service: 05/02/24 ?? Procedure(s): XR chest 2V ?? Accession Number(s): [id number] ? cc: Kesha Yang MD; Judy Weller SERVICE GIRL ? EXAMINATION: ?? XR CHEST ? CLINICAL [...] DD/ 1131 ? TD/TT: 05/02/24 1139 ? Spray Machine Operator: ? Procedure Note Adelia, Judy - 05/08/2024 [place] [address] XRay Report Signed Patient: Irving Mckay#: [id number] 55 : 1985Acct:[id number] Age/Sex: 38 / FADM Date: 05/02/24 Loc: HO.HHCL Attending Dr: Kesha Castro MD Ordering Physician: Kesha Yang MD Date of Service: 05/02/24 Procedure(s): XR chest 2V Accession Number(s): [id number] cc: Kesha Yang MD; Judy Weller NP EXAMINATION: XR CHEST CLINICAL INFORMATION: Preop. COMPARISON: None TECHNIQUE: 2 views of the chest were obtained. FINDINGS: No consolidation pleural effusion or pneumothorax. Cardiomediastinal silhouette is normal. Osseous structures are intact. XR/XR chest 2V IMPRESSION: No acute airspace disease. Negative. Electronically signed by: Jimenez Carpenter MD 05/08/2024 09:18 AM EST RP Dictated By: Jimenez Santos MD Signed By: <Electronically signed by Jimenez Macias MDin OV> 05/08/24 0918 DD/ 1131 TD/TT: 05/02/24 1139 Spray Machine Operator: Kesha Castro MD IMG XR PROCEDURES Walt abner Result - Final * Partial Thromboplastin Time, Activated (APTT) (05/02/2024 11:08 AM EST) Partial Thromboplastin Time 28.4 26.0 - 36.8 SEC [facility] Comment:For information rega rding the monitoring of direct thrombininhibitors, please refer to Pharmacy. Blood Venous blood specimen / Unknown 05/02/2024 11:08 AM EST 05/02/2024 1:00 PM EST us Kesha Castro MD LAB BLOOD ORDERABLES Final Result [facility] [address] [place] [address] [phone] * (ABNORMAL) Prothrombin Time-INR (05/02/2024 11:08 AM EST) Prothrombin Time 10.2(L) 10.9 - 12.4 SEC [facility] INTERNATIONAL NORM RATIO 0.9 0.9 - 1.1 [facility] Comment:INTERNATIONAL NORMAL IZED RATIO (INR) REFERENCE [...] BLOOD ORDERABLES Final Result Performing Organization Address City/[facility]/ZIP Co de Phone Number [facility] [address] [place] [phone] * TSH (05/02/2024 11:08 AM EST) Only the most recent of2 resultswithin the time period is included. Thyroid Stimulating Hormone 0.66 0.32 - 4.0 uIU/mL [facility] Comment:TSH 3rd Generation ( [facility]) Blood Venous blood specimen / Unknown 05/02/2024 11:08 AM EST 05/02/2024 1:00 PM EST us Judy Weller NP LAB BLOOD ORDERABLES Final Resul t Performing Organization Address [facility] Co de Phone Number [facility] [address] [place] [phone] * Hepatitis C Antibody with Reflex to HCV, RNA, Quantitative, Real-Time PCR (03/11/2024 10:10 AM EST) Hepatitis C Antibody Nonreactive Nonreactive [facility] Comment:Antibodies to HCV no t detected; does not exclude early acuteHCV infection. Blood Venous blood specimen / Unknown 03/11/2024 10:10 AM EST 03/11/2024 11:06 AM EST us Judy Weller NP LAB BLOOD ORDERABLES Final Resul t Performing Organization Address [facility] Co de Phone Number [facility] [address] [place] [phone] * HIV-1/2 Antigen and Antibodies, Fourth Generation, with Reflexes (03/11/2024 10:10 AM EST) HIV AB/AG Nonreactive Nonreactive [facility] Comment:HIV-1 p24 Ag and/or HIV-1/HIV-2 Ab not detected.A test result that is nonreactive does not exclude thepossibility of exposure to or infection with HIV-1 and/orHIV-2. Nonreactive results in this assay for individualswith prior exposure to HIV-1 and/or HIV-2 may be due toantigen and antibody levels that are below the limit ofdetection of this assay.The [employer] HIV Ag/Ab Combo assay result andsupplemental assay results should be interpreted inconjunction with the patient's clinical presentation,history and other laboratory results. If the results areinconsistent with clinical evidence, additional testing issuggested to confirm the result. Blood Venous blood specimen / Unknown 03/11/2024 10:10 AM EST 03/11/2024 11:06 AM EST us Judy Weller NP LAB BLOOD ORDERABLES Final Resul t [facility] [address] [place] [phone] * Hemoglobin A1c (03/11/2024 10:10 AM EST) Hemoglobin A1c 5.4 <6.0 % [facility] Comment:Hemoglobin A1C Refer ence Range Adults: 4.8 - 6.0 % Non diabetic: < 6.0 % Goal: < 7.0 %Additional Action Suggested: > 8.0 %Note: Hemoglobin A1c results are invalid for patients with abnormal amounts of HbF. Blood transfusions may impact the HbA1c concentration in the patient sample. Estimated Average Glucose 108 mg/dL [facility] Comment:eAG = Estimated ave rage glucose which is %A1C expressed asaverage glucose, using the formula of the F1J-HpiddhpQdglfyi Glucose study (ADAG), Diabetes Care, Vol.31,#8,Nov. 2007 Blood Venous blood specimen / Unknown 03/11/2024 10:10 AM EST 03/11/2024 11:06 AM EST us Judy Weller SERVICE GIRL LAB BLOOD ORDERABLES Final Resul t Performing Organization Address [facility] Co de Phone Number [facility] [address] [place] [phone] * (ABNORMAL) Lipid Panel, Standard (03/11/2024 10:10 AM EST) Triglycerides 68 <150 mg/dL [facility] Comment:Desirable Triglyceri de: less than 150 mg/dLBorderline High Triglyceride 150-199 mg/dLHigh Triglyceride: 200-499 mg/dLVery High Triglyceride: greater than or equal to 5OO mg/dL Cholesterol 180 <200 mg/dL [facility] Comment:Desirable Cholestero l: less than 200 mg/dLBorderline High Cholesterol: 200-239 mg/dLHigh Cholesterol: greater than 239 mg/dL LDL Cholesterol Calculated 106(H) <100 mg/dL [facility] Comment:Desirable LDL: less than 100 mg/dLNear Optimal/Above Optimal LDL: 110- 129 mg/dLBorderline High LDL: 130-159 mg/dLHigh LDL: 160-189 mg/dLVery High LDL: greater than or equal to 190 mg/dL HDL Cholesterol 61 >40 mg/dL [facility] Comment:Desirable HDL: great er than 40 mg/dL Note: This HDL assay may give artificially low results in patients with liver disease. Blood Venous blood specimen / Unknown 03/11/2024 10:10 AM EST 03/11/2024 11:06 AM EST us Judy Weller NP LAB BLOOD ORDERABLES Final Resul t Performing Organization Address [facility]/ZIP Co de Phone Number [facility] [address] [place] [phone] * Hm Pap Smear (11/23/2022) Pap Negative for intraephithelial lesion or malignancy Negative for intraephithelial lesion or malignancy, Other HPV Undetected Undetected, Indeterminate, Quantitative, Not Detected us Historical Provider MD HEALTH MAINTENANCE Final Result from Last 3 Months or Most Recently Relevant to Health Maintenance Insurance [address] [place] [id number] [email or web address] C[employer] Care Teams Principal Gifts Officer Relationship Specialty Start Date End Date Judy Weller NP [address] [place] [phone] PCP - General Family Medicine 01/03/24
--- OUTSIDE RECORDS SUMMARY | 2024-06-01 20:31 | XMS_ITS | Encounter Summary ---
Author Organization [employer] Address [address] [facility] [address] [place] [address] Care Team Providers Care Air Boatswain Name Role Phone Cristal Wilde ORACLE WMS CONSULTANT Primary Care Provider [phone] Judy Weller ENDLESS BELT FINISHER Primary Care Provider [phone] Reason for Visit * Reason Onset Date Comments New Patient 12/09/2022 Encounter Details Date Type Department Care Team (Late st Contact Info) Description 12/09/2022 Telephone [facility] [address] [place], [place] [phone] Tomas Kelly MD [address] [place], [place] [phone] New Patient Social History Tobacco Use Types [...] EDT MARIMAR Scherer called pt to Offer ENDLESS BELT FINISHER appt. Pt demographics and insurance information were verified. Pt reports no medical conditions. Pt is not taking any medication at this time. Pt given ENDLESS BELT FINISHER appt with on Pt will be sent appt reminder card and medical release form and agrees to complete and toreturn to medical records prior to ENDLESS BELT FINISHER appt. * Telephone Encounter - Moremarkus Gilmer Darnell - 12/09/2022 10:26 AM EDT Pt has been transfer over to wait list for ENDLESS BELT FINISHER. EFFECTIVE SINCE 12/08/2022 documented in this encounter Plan of Treatment Upcoming Encounters Date Type Department Care Team (Late st Contact Info) Description 06/10/2024 11:30 AM EST Office Visit [facility] [address] [place] [address] Judy Weller NP [address] [place] [address] documented as of this encounter Visit Diagnoses Not on filedocumented in this encounter Care Teams Air Boatswain Relationship Specialty Start Date End Date Cristal Wilde FNP [address] [place] [phone] PCP - General Family Medicine 02/03/23 01/02/24 Judy Weller NP [address] [place] [address] PCP - General Family Medicine 01/03/24 documented as of this encounter
--- OUTSIDE RECORDS SUMMARY | 2024-06-01 20:31 | XMS_ITS | Encounter Summary ---
Author Organization [employer] Address [address] [facility] 7t [place] [address] Care Team Providers Care Sky Diver Name Role Phone Judy Weller VINNIE Primary Care Provider [phone] Reason for Visit * Reason Comments Pre-op Exam Encounter Details Date Type Department Care Team ([facility] st Contact Info) Description 05/02/2024 10:15 AM EST Office Visit [facility] [address] [place], [place] [phone] Kesha Yang MD [address] [place], [place] [phone] Preop examination (Primary Dx); Moderate persistent asthma, [...] Description 06/10/2024 11:30 AM EST Office Visit [facility] [address] [place] [address] Judy Weller NP [address] [place] [address] Scheduled Orders Name Type Priority Associated Diagnoses [...] EST Narrative 05/08/2024 9:20 AM EST ? [facility] ?[address] ?[place] [address] ?XRay Report ? Signed ? Patient: Nely,Zuledka ?MR#: [id number] ?? 55 ? : 1985 ?Acct:[id number] ? Age/Sex: 38 / F ?ADM Date: 01/02/25 ? Loc: HO.HHCL ? Attending Dr: Kesha Castro MD ? Ordering Physician: Kesha Yang MD ?? Date of Service: 05/02/24 ?? Procedure(s): XR chest 2V ?? Accession Number(s): [id number] ? cc: Kesha Yang MD; Judy Weller MANAGER TECHNICAL SALES ? EXAMINATION: ?? XR CHEST ? CLINICAL [...] DD/ 1131 ? TD/TT: 05/02/24 1139 ? Rn Visiting: ? Procedure Note Donhussaininterpreter, Image - 05/08/[address] [address] XRay Report Signed Patient: Irving MckayMR#: [id number] 55 : 1985Acct:[id number] Age/Sex: 38 / FADM Date: 05/02/24 Loc: .[facility] Attending Dr: Kesha Castro MD Ordering Physician: Kesha Yang MD Date of Service: 05/02/24 Procedure(s): XR chest 2V Accession Number(s): [id number] cc: Kesha Yang MD; Judy Weller NP [...] 05/08/24 0918 DD/ 1131 TD/TT: 05/02/24 1139 Rn Visiting: Result Nestor Castro MD IMG XR PROCEDURES Walt abner Result - Final * Partial Thromboplastin Time, Activated (APTT) (05/02/2024 11:08 AM EST) Partial Thromboplastin Time 28.4 26.0 - 36.8 SEC [facility] Comment:For information rega rding the monitoring of direct thrombininhibitors, please refer to Pharmacy. Blood Venous blood specimen / Unknown 05/02/2024 11:08 AM EST 05/02/2024 1:00 PM EST us Kesha Castro MD LAB BLOOD ORDERABLES Final Result Performing Organization Address City/State/[facility] Co de Phone Number [facility] [address] [place] [address] [phone] * (ABNORMAL) Prothrombin Time-INR (05/02/2024 11:08 AM EST) Prothrombin Time 10.2(L) 10.9 - 12.4 SEC [facility] INTERNATIONAL NORM RATIO 0.9 0.9 - 1.1 [facility] Comment:INTERNATIONAL NORMAL IZED RATIO (INR) [...] BLOOD ORDERABLES Final Result Performing Organization Address City/[facility]/ZIP Co de Phone Number [facility] [address] [place] [phone] * (ABNORMAL) Comprehensive Metabolic Panel (05/02/2024 11:08 AM EST) Sodium 139 135 - 145 mmol/L [facility] Potassium 4.0 3.3 - 5.1 mmol/L [facility] Chloride 108 96 - 108 mmol/L [facility] Carbon Dioxide 24 22 - 29 mmol/L [facility] Anion Gap 11(L) 12 - 20 [facility] Urea Nitrogen (BUN) 13 9 - 16 mg/dL [facility] Creatinine, Serum 0.73 0.5 - 1.4 mg/dL [facility] Estimated Glomerular Filt Rate >60 [facility] Comment:Chronic Kidney Disea se: Estimated GFR < 60 mL/min/1.94r3Agxlna Kidney Disease: Estimated GFR < 15 mL/min/1.73m2 Glucose 102 60 - 115 mg/dL [facility] Calcium 9.0 8.4 - 10.2 mg/dL [facility] Bilirubin, Total 0.2 0.0 - 1.0 mg/dL [facility] Aspartate Amino Transferase 16 5 - 31 U/L [facility] Alanine Aminotransferase 17 0 - 31 U/L [facility] Total Protein 6.8 6.5 - 8.0 g/dL [facility] Albumin Level 4.0 3.5 - 5.0 g/dL [facility] Alkaline Phosphatase 76 39 - 117 U/L [facility] Blood Venous blood specimen / Unknown 05/02/2024 11:08 AM EST 05/02/2024 1:00 PM EST us Kesha Castro MD LAB BLOOD ORDERABLES Final Result Performing Organization Address [facility]/ZIP Co de Phone Number [facility] [address] [place] [phone] documented in this encounter Visit Diagnoses Diagnosis Preop examination- Primary Unspecified pre-operative examination Moderate persistent asthma, unspecified whether complicated Moderate persistent asthma with exacerbation Unspecified asthma, with exacerbation documented in this encounter Additional Health Concerns Assessment Noted Time PHQ-9 Depression Total Score: 14 023 10:07 AM EDT documented as of this encounter Care Teams Sky Diver Relationship Specialty Start Date End Date Judy Weller NP [address] [place] [address] PCP - General Family Medicine 01/03/24 documented as of this encounter
--- OUTSIDE RECORDS SUMMARY | 2024-06-01 20:31 | XMS_ITS | Encounter Summary ---
Author Organization [employer] Address [address] [facility] 7t [place] [address] Care Team Providers Care Robotics Technician Name Role Phone Judy Weller VINNIE Primary Care Provider [phone] Encounter Details Date Type Department Care Team ([facility] st Contact Info) Description 05/13/2024 Telephone [facility] [address] [place], [place] [phone] Kesha Yang MD [address] [place], [place] [phone] Social History Tobacco Use Types Packs/Day Years [...] Description 06/10/2024 11:30 AM EST Office Visit [facility] [address] [place] [address] Judy Weller NP [address] [place] [address] documented as of this encounter Visit Diagnoses Not on filedocumented in this encounter Additional Health Concerns Assessment Noted Time PHQ-9 Depression Total Score: 14 023 10:07 AM EDT documented as of this encounter Care Teams Robotics Technician Relationship Specialty Start Date End Date Judy Weller NP [address] [place] [address] PCP - General Family Medicine 01/03/24 documented as of this encounter
[2024-06-01 20:32] LABS: MANUAL DIFF FLAG NO
[2024-06-01 20:47] LABS: Alanine Aminotransferase 24 U/L (0-31); Albumin Level 3.6 g/dL (3.5-5.0); Alkaline Phosphatase 57 U/L (39-117); Anion Gap 12 (12-20); Aspartate Amino Transferase 18 U/L (5-31); Bilirubin Direct 0.1 mg/dL (0.0-0.5); Bilirubin Total 0.4 mg/dL (0.0-1.0); Blood Urea Nitrogen 10 mg/dL (9-16); Calcium 8.7 mg/dL (8.4-10.2); Carbon Dioxide 24 mmol/L (22-29); Chloride 109 mmol/L (96-108); Creatinine Clr Calc Pharmacy 117.7; Estimated Glomerular Filt Rate > 60; Glucose Random 128 mg/dL (60-115); Lipase 38 U/L (8-78); Magnesium 2.1 mg/dL (1.6-2.6); Potassium 4.1 mmol/L (3.3-5.1); Sodium 141 mmol/L (135-145); Total Protein 6.5 g/dL (6.5-8.0)
[2024-06-01 20:51] LABS: INTERNATIONAL NORM RATIO 0.9 (0.9-1.1); Prothrombin Time 10.6 SEC (10.9-12.4)
[2024-06-01 21:01] LABS: Basophils Percent Auto 0.3 % (0-2); Eosinophils Absolute Auto 0.4 X10*3/uL (0.0-0.4); Eosinophils Percent Auto 3.9 % (0-4); Hematocrit 22.4 % (37.0-47.0); Imm Gran Abs Auto 0.23 X10*3/uL (0.00-0.03); Imm Gran Pct Auto 2.2 % (0.0-0.4); Lymphocytes Absolute Auto 2.6 X10*3/uL (1.2-4.9); Lymphocytes Percent Auto 25.1 % (20-40); Mean Corpuscular HGB Conc 31.3 g/dl (31.0-35.0); Mean Corpuscular Hemoglobin 28.6 pg (27.0-33.0); Mean Corpuscular Volume 91.4 fL (80.0-98.0); Mean Platelet Volume 8.6 fL (9.4-12.3); Monocytes Absolute Auto 0.6 X10*3/uL (0.1-1.2); Monocytes Percent Auto 5.3 % (2-11); Neutrophils Absolute Auto 6.5 x10*3/uL (2.0-8.3); Neutrophils Percent Auto 63.2 % (45-73); Platelet Count 424 X10*3/uL (160-400); Red Blood Count 2.45 X10*6/uL (4.20-5.50); Red Cell Distribution Width 16.1 % (11.0-16.0); White Blood Count 10.3 X10*3/uL (4.8-10.8)
--- NOTE | 2024-06-01 21:15 | PC.NURSE ---
pt a&ox4, respirations even and unlabored, pt appears pale at this time. pt reports increased dizziness and weakness, report seeing pcp today and being told hemoglobin is low. pt ambulatory into room with steady gait. pt reports having a BBL surgery done last week, reports she has had no issues with healing, denies signs of infection. pt assisted onto bed on abdomen due to not being able to sit. 18G placed in right ac at this time. provider aware of pt labs. nsr on tele.
[2024-06-01 22:35] VITALS: BP 131/77; PULSE 103; RESP 19; TEMP 36.8
[2024-06-01 22:52] VITALS: BP 132/68; PULSE 99; RESP 15; TEMP 36.9
--- NOTE | 2024-06-01 22:52 | PC.NURSE ---
initial 15 minutes blood transfusion complete, pt tolerated well, no acute distress noted. per , plan to give unit of blood over 2 hours.pt tolerating well at this time.
--- NOTE | 2024-06-01 23:00 | PC.NURSE ---
at this time, pt reporting palpitations, provider aware. per provider reduce ml/hr on blood, reduced to 100ml/hr, pt offered anti anxiety medication at this time. vss.
[2024-06-01 23:05] LABS: Partial Thromboplastin Time 27.5 SEC (26.0-36.8)
[2024-06-01 23:17] LABS: HCG Quantitative < 2 mIU/mL
--- NOTE | 2024-06-02 00:34 | PC.NURSE ---
pt offered medication at this time, pt refusing, reports she is feeling okay at this time.
[2024-06-02 00:51] LABS: Appearance Urine Clear; Color Urine Yellow; Glucose Urine UA Negative (Negative); Leukocyte Esterase Urine Small (1+) (Negative); Nitrite Urine Negative (Negative); PH 6.5 (5.0-9.0); UMIC TRIGGER UACC YES; UPreg QC Valid YES; Urine Blood Negative (Negative); Urine Ketones Negative (Negative); Urine Pregnancy NEGATIVE (NEGATIVE); Urine Protein Negative (Neg-Trace)
[2024-06-02 00:53] LABS: Bacteria Urine 1+ (None Seen); Hyaline Casts Urine 0-2 /LPF (0-2); RBC Urine 0-2 /HPF (0-2); UACC Culture Trigger YES
[2024-06-02 01:00] VITALS: BP 122/78; PULSE 91; RESP 16; TEMP 36.9
[2024-06-02 01:17] VITALS: BP 125/68; PULSE 96; RESP 20; TEMP 36.9
[2024-06-02 01:32] VITALS: BP 133/85; PULSE 87; RESP 20; TEMP 36.9
--- NOTE | 2024-06-02 01:35 | PC.NURSE ---
second unit hanging at this time, pt tolerating well, denies any complaints.
[2024-06-02 03:32] VITALS: BP 119/78; PULSE 87; RESP 18; TEMP 36.8
[2024-06-02 03:42] LABS: Basophils Percent Auto 0.4 % (0-2); Eosinophils Absolute Auto 0.4 X10*3/uL (0.0-0.4); Eosinophils Percent Auto 3.7 % (0-4); Hematocrit 28.6 % (37.0-47.0); Hemoglobin 9.4 g/dl (12.0-16.0); Imm Gran Pct Auto 1.8 % (0.0-0.4); Lymphocytes Absolute Auto 2.9 X10*3/uL (1.2-4.9); Lymphocytes Percent Auto 25.8 % (20-40); MANUAL DIFF FLAG NO; Mean Corpuscular HGB Conc 32.9 g/dl (31.0-35.0); Mean Corpuscular Hemoglobin 29.5 pg (27.0-33.0); Mean Corpuscular Volume 89.7 fL (80.0-98.0); Mean Platelet Volume 8.1 fL (9.4-12.3); Monocytes Absolute Auto 0.7 X10*3/uL (0.1-1.2); Monocytes Percent Auto 6.1 % (2-11); NRBC Pct Auto 0.2 /100WBC (0.0-0.2); Neutrophils Absolute Auto 7.1 x10*3/uL (2.0-8.3); Neutrophils Percent Auto 62.2 % (45-73); Platelet Count 354 X10*3/uL (160-400); Red Blood Count 3.19 X10*6/uL (4.20-5.50); Red Cell Distribution Width 15.1 % (11.0-16.0); White Blood Count 11.4 X10*3/uL (4.8-10.8)
--- NOTE | 2024-06-02 04:41 | PC.NURSE ---
best second jobs at bedside, pt assisted out of bed, ambulatory with steady gait without dizziness.
[2024-06-02 04:42] VITALS: BP 119/78; PULSE 87; RESP 18; TEMP 36.8; O2SAT 100
== END 2024-06-02 04:43 | disposition home or self-care (01) ==
PROVIDERS: Physician Assistant; Emergency Provider Emergency Medicine Emergency Medical Services
DX: D64.9 Anemia, unspecified (principal); D50.0 Iron deficiency anemia secondary to blood loss (chronic); R42 Dizziness and giddiness
CPT/HCPCS: 36415; 36430; 80048; 80076; 81001; 81025; 83690; 83735; 84702; 85025; 85610; 85730; 86850; 86900; 86901; 86923; 87086; 93005; 99285; P9016

== ENCOUNTER → 2024-06-01 20:09 | Outpatient (BNV) | payer MEDICAID, SELFPAY | PROVIDERS: Emergency Provider Emergency Medicine Emergency Medical Services; Visit Provider Internal Medicine | DX: R42 Dizziness and giddiness (principal) | CPT/HCPCS: 93010 ==

== ENCOUNTER 2024-11-15 17:30 | Outpatient (REF) | payer MEDICAID, SELFPAY ==
[2024-11-15 20:46] LABS: Bacterial Vaginosis PCR NEGATIVE (Negative); Candida Group PCR NOT DETECTED (Not Detect); Candida glab krusei PCR NOT DETECTED (Not Detect); Trichomonas vaginalis PCR NOT DETECTED (Not Detect)
[2024-11-15 21:26] LABS: CT PCR NOT DETECTED (Not Detect.); NG PCR NOT DETECTED (Not Detect.)
== END 2024-11-15 17:31 | disposition home or self-care (01) ==
LOC: HO.LNP 17:30
PROVIDERS: Visit Provider Nurse Practitioner
DX: N89.8 Other specified noninflammatory disorders of vagina (principal)
CPT/HCPCS: 81515; 87491; 87591

== ENCOUNTER 2024-11-18 10:36 | Outpatient (REF) | payer MEDICAID, SELFPAY ==
--- NOTE | ~2024-11-18 | XR_ITS ---
EXAMINATION: XR ABDOMEN COMPLETE CLINICAL INDICATION: PAIN COMPARISON: None available. TECHNIQUE: Standing and supine views of the abdomen. FINDINGS: The bowel gas pattern is normal with no evidence of ileus or obstruction. Punctate calcification in the left upper quadrant projecting over the mid to upper kidney probably represents a kidney stone measuring up to 4 mm. No bony abnormality is evident XR/XR abdomen min 2V IMPRESSION: Unremarkable bilateral spine. Probable 2x4 mm left kidney stone. Electronically signed by: Андрей Croft MD 11/18/2024 01:20 PM EDT RP
[2024-11-18 11:22] LABS: UPreg QC Valid YES
--- OUTSIDE RECORDS SUMMARY | 2024-11-18 11:39 | XMS_ITS | Encounter Summary ---
Author Organization [employer] Address [address] [place] [address] [address] [place] [address] Care Team Providers Care [employer] Name Role Phone Cristal Wilde Primary Care Provider [phone] Judy Weller NP Primary Care Provider [phone] Encounter Details Date Type Department Care Team (Late st Contact Info) Description 01/20/2023 Orders Only [facility] [address] [place], [place] [id number] Cristal Wilde FNP [address] [place] [address] Social History Tobacco Use Types Packs/Day Years Used Date Smoking Tobacco: Never Assessed Comments Unknown Sex and Gender Information Value Date Recorded Sex Assigned at Female 01/31/2023 11:24 AM EDT Legal Sex Female 3:43 PM EDT Gender Identity Female 01/31/2023 11:24 AM EDT Sexual Orientation Straight 01/31/2023 11 :24 AM EDT documented as of this encounter Plan of Treatment Not on file documented as of this encounter Visit Diagnoses Not on filedocumented in this encounter Care Teams [employer] Relationship Specialty Start Date End Date Cristal Wilde FNP [address] [place], [place] [phone] PCP - General Family Medicine 02/03/23 01/02/24 Judy Weller NP [address] [place] [address] PCP - General Family Medicine 01/03/24 documented as of this encounter
[2024-11-18 12:59] LABS: MANUAL DIFF FLAG NO
[2024-11-18 13:14] LABS: Hematocrit 37.2 % (37.0-47.0); Hemoglobin 12.3 g/dl (12.0-16.0); Imm Gran Abs Auto 0.04 X10*3/uL (0.00-0.03); Imm Gran Pct Auto 0.5 % (0.0-0.4); Lymphocytes Absolute Auto 2.3 X10*3/uL (1.2-4.9); Mean Corpuscular HGB Conc 33.1 g/dl (31.0-35.0); Mean Corpuscular Hemoglobin 28.5 pg (27.0-33.0); Mean Corpuscular Volume 86.1 fL (80.0-98.0); NRBC Abs Auto 0.000 X10*3/uL (0.0-0.012); NRBC Pct Auto 0.0 /100WBC (0.0-0.2); Platelet Count 300 X10*3/uL (160-400); Red Blood Count 4.32 X10*6/uL (4.20-5.50); White Blood Count 8.8 X10*3/uL (4.8-10.8)
== END 2024-11-18 10:37 | disposition home or self-care (01) ==
LOC: HO.HHCX 10:36
PROVIDERS: Nurse Practitioner Family; PCP Nurse Practitioner; Visit Provider Nurse Practitioner
DX: E66.811 Obesity, class 1 (principal); D62 Acute posthemorrhagic anemia; R10.84 Generalized abdominal pain; R14.0 Abdominal distension (gaseous); Z32.02 Encounter for pregnancy test, result negative
CPT/HCPCS: 36415; 74019; 81025; 85025; 87338

== ENCOUNTER → 2024-11-18 12:15 | Outpatient (BNV) | payer MEDICAID, SELFPAY | PROVIDERS: PCP Nurse Practitioner; Visit Provider Radiology Diagnostic Radiology | DX: R10.9 Unspecified abdominal pain (principal) | CPT/HCPCS: 74019 ==